=== PATIENT | female | born 1935 | race Caucasian/White ===

== ENCOUNTER 2016-12-18 11:33 | Emergency (ER) | payer MEDICARE ==
[~2016-12-18] VITALS: Ht 162.6 cm; Wt 93.6 kg
[2016-12-18 12:01] VITALS: BP 118/76; PULSE 121; RESP 12; O2SAT 97
[2016-12-18 13:19] LABS: BASOPHILS % (AUTO) 0.4 % (0-3); EOSINOPHILS % (AUTO) 1.3 % (0-5); MONOCYTES % (AUTO) 10.1 % (4-12); Mean Corpuscular Hemoglobin 30.7 pg (27.0-35.0); Mean Corpuscular Volume 92.8 fL (81-100); NEUTROPHILS % (AUTO) 70.4 % (40-74); Platelet Count 298 bil/L (150-400)
--- NOTE | 2016-12-18 13:50 | DRSVH ---
PROCEDURE: X-RAY CHEST, TWO VIEWS ([id number]) INDICATIONS: SHORTNESS OF BREATH TECHNIQUE: 2 views of the chest were acquired. COMPARISON: [facility], CR, XR CHEST 2VW, 12/10/2016, 15:29. FINDINGS: Surgical changes and devices: None. Lungs and pleura: Aeration of the lungs is similar to the previous exam with eventration/elevation of the right diaphragm. No focal consolidation, effusion, or pneumothorax is evident. Right hilar pro minence is unchanged. Mediastinum: Mediastinal contours are normal. Heart size is normal. Bones and chest wall: No suspicious bony abnormalities. Soft tissues appear unremarkable. IMPRESSION: No overt heart failure or pneumonia is evident. Dictated by: Brenden Daly M.D. on 12/18/2016 at 12:47 Approved by: Brenden Daly M.D. on 12/18/2016 at 12:48
--- NOTE | 2016-12-18 14:00 | ED.REPORT ---
HPI-Dyspnea / Wheezing Date of Service Dec 18, 2016 ED Provider: Jc Hassan MD Pt is an 81 y/o female anticoagulated on Warfarin w/ a hx of A-Fib, HTN, presenting to the ED c/o ongoing SOB onset 1 month ago. She has no history of pulmonary disease. She states she was in [place] for 2 weeks sightseeing and was "hit by a bout of CHF" just prior to taking off on her flight and was seen in an ED there and given IV Lasix. At that time she was experiencing dyspnea on exertion, peripheral edema, and confusion. She returned on November 30. She c/o associated mild yellow productive cough, rapid palpitations since she returned. Pt denies fever, chills, CP. Her PCP told her that she should be admitted for uncontrolled A-fib. Nursing Notes Stated Complaint: UNABLE TO BREATHE DEEP/ SENT BY DOCTOR Chief Complaint: Respiratory Complaints Nursing Notes Reviewed: Yes Allergies: Coded Allergies: lisinopril (Verified Allergy, Intermediate, cough, 12/18/16) erythromycin base (Verified Allergy, Unknown, vomit, 12/18/16) General Time Seen by MD: 13:57 Chief Complaint Shortness of breath Hx Obtained From: Patient Arrived By: Walk-in Sudden in Onset?: No Onset Occurred: More than a week ago... 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 Physical Exam Initial Vital Signs Vital Signs (First) Date Time Temp Pulse Resp B/P Pulse Ox O2 Delivery O2 Flow Rate FiO2 12/18/16 12:01 36.6 121 12 118/76 97 Room Air Initial VS: Reviewed, Vital signs abnormal Head / Eyes: Atraumatic, Normocephalic, PERRL ENT: Mucous membranes moist, Conjunctiva normal, No scleral icterus Abdomen / GI: Soft, Non-tender, No guarding, No rebound, No distention Extremities: Vascular intact, Neuro intact, No tenderness Skin: Warm, Dry, No cyanosis Neurologic: Alert, Oriented, Nonfocal Psychiatric: Mood/affect normal, Behavior normal, Normal thought content General/Constitutional: Awake, Alert, No acute distress, Cooperative, Not toxic appearing Neck: Atraumatic, Supple, No meningismus, Full range of motion Respiratory / Chest: Atraumatic, No respiratory distress, No stridor, No chest tenderness, No chest wall deformity, No crepitus Bibasilar rales extending 1/3 up base Cardiovascular: Heart rate NL, Heart sounds NL, No gallop, No murmurs, No rubs , Cap refill not delayed, Peripheral circulation NL Heart Rate / Rhythm: Positive: Irreg irregular rhythm Lower Ext Edema: Positive: Bilateral 2+ Interpretation & Diagnostics Lab Results Interpretation Result Diagram: 12/18/16 1308 12/18/16 1308 Test 12/18/16 13:08 White Blood Count 14.3th/mm3 (3.8-10.1) Red Blood Count 4.89mil/mm3 (3.90-5.20) Hemoglobin 15.0g/dL (12.0-15.6) Hematocrit 45.4% (35.0-46.0) Mean Corpuscular Volume 92.8fL (81-100) Mean Corpuscular Hemoglobin 30.7pg (27.0-35.0) Mean Corpuscular Hemoglobin Concent 33.0% (32.0-37.0) Red Cell Distribution Width 12.8% (12.3-15.4) Platelet Count 298bil/L (150-400) Neutrophils (%) (Auto) 70.4% (40-74) Lymphocytes (%) (Auto) 17.5% (14-46) Monocytes (%) (Auto) 10.1% (4-12) Eosinophils (%) (Auto) 1.3% (0-5) Basophils (%) (Auto) 0.4% (0-3) Prothrombin Time 44.3sec (8.1-12.5) Prothromb Time International Ratio 4.02ratio Sodium Level 142mEq/L (134-144) Potassium Level 3.7mEq/L (3.5-5.2) Chloride Level 101mEq/L (97-108) Carbon Dioxide Level 26mmol/L (18-29) Blood Urea Nitrogen 35mg/dL (8-27) Creatinine 1.59mg/dL (0.57-1.00) Estimat Glomerular Filtration Rate 45mL/min (>59) Glucose Level 128mg/dL (60-99) Calcium Level 10.8mg/dL (8.5-10.1) Total Bilirubin 0.5mg/dL (0.0-1.2) Aspartate Amino Transf (AST/SGOT) 25U/L (0-50) Alanine Aminotransferase (ALT/SGPT) 26U/L (0-32) Alkaline Phosphatase 108U/L (25-165) Troponin T 0.023ug/L (0.0-0.011) Pro-B-Type Natriuretic Peptide 2716pg/mL (0-738) Total Protein 7.3g/dL (6.4-8.4) Albumin 4.3g/dL (3.4-5.0) Hold Chu Top Tube Received (Received) ECG Interpretation ECG Interpretation: Atrial fibrillation with rapid V-rate. Rate 145. Left anterior fascicular block. Low voltage, precordial leads. Time: 13:34 Interpreted by: ED physician X-Ray Chest Interpretation Chest Xray Interpretation: IMPRESSION: No overt heart failure or pneumonia is evident. Dictated by: Brenden Daly M.D. on 12/18/2016 at 12:47 Approved by: Brenden Daly M.D. on 12/18/2016 at 12:48 View: Portable, AP & lat Interpretation / Wet Read by: Interpret - Radiologist Re-Eval/Medical Decision Consultation : Referral / Consult Name: Rashawn La MD Consulted With: Cardiology Call Returned at: 16:55 Outside Food Server: Agrees with eval, Agrees with plan Note: Increase Lasix to 80 mg per day and Metoprolol to 100 mg BID. Her echocardiogram looks good. He recommends follow-up with primary care and cardiology referral if desired. Counseled Regarding: Diagnosis, Lab results, Need for follow-up, When/why to return to ED Discharge & Departure Impression: Primary Impression: Atrial fibrillation with rapid ventricular response Disposition: Home Discharge Condition All VS Reviewed: Yes Condition: Stable Patient Instructions: Atrial Fibrillation (ED) Additional Instructions: I spoke with the hypo dipper today (Dr. Rashawn La). He said your echocardiogram looks good, and probably does not demonstrate significant congestive failure. He believes that the abnormalities seen are all rate related. The Following changes to medications are recommended: 80 mg Lasix daily and 100 mg Metoprolol twice each day. Follow-up with your primary care provider in the coming week to discuss further adjustments and potential cardiology referral. Regarding your warfarin, your INR currently is 4.0 do not take warfarin today and resume dosing Thursday and Thursday and have it ( INR) rechecked on Thursday. Referrals: Anne Mason DO (PCP) Kp Attestation Portions of this note were transcribed by Brandon Esquivel. I, Dr. Hassan personally performed the history, physical exam and medical decision-making; I reviewed and confirmed the accuracy of the information in the transcribed note. Signed by Brandon Esquivel and Kp Holman, 12/18/16 - 1500 copies to: Anne Mason Kirk H MD Dec 18, 2016 14:00 BRANDON ESQUIVEL Dec 18, 2016 14:35 Lindsay Rodriguez Dec 18, 2016 15:01
[2016-12-18 14:02] LABS: TROPONIN T 0.023 ug/L (0.0-0.011)
[2016-12-18 14:53] LABS: INR 4.02 ratio
[2016-12-18 15:00] VITALS: BP 131/87; PULSE 71; RESP 20; O2SAT 98
[2016-12-18 17:32] VITALS: BP 129/88; PULSE 79; O2SAT 100
--- NOTE | 2016-12-18 17:47 | DRSVH ---
[facility] [address] [place] [address] Echocardiogram Report Name: FEDE ANDRADE te: 12/18/2016 Height: 64 in Hospital Exam Location: [facility] Weight: 206 lb Gender: Female BSA: 2.0 m2 : 1935 Age: 81 yrs BP: 131/87 mmHg Reason For Study: Congestive Heart Failure History: AFIB, Hypertension Ordering Physician: HOSPITALIST [facility] Performed By: Ashley Tabor Referring Physician: Tawnya Mason Interpretation Summary The left ventricular cavity is small. Left ventricular systolic function is moderately reduced. LVEF is difficult to assess due to rapid atrial fibrillation but it appears to be in the range of 40 +/- 5%. The right ventricle is normal size. Right ventricular systolic function is mild to moderately reduced. The right ventricular systolic pressure is estimated at 47 mmHg assuming a right atrial pressure of 15 mm Hg. Both atria are normal in size. There is mild mitral regurgitation. There is no other significant valvular heart disease. The aortic root is normal size. The IVC is dilated (diameter is greater than 2.1 cm) and it collapses less than 50% with a sniff. This suggests a high right atrial pressure of 15 mm Hg. Procedure: A two-dimensional transthoracic echocardiogram with color flow and Doppler was performed. The study quality was technically adequate. There is no prior echocardiogram noted for this patient. The patient was in atrial fibrillation with heart rates between 93-155 bpm during the exam. Left Ventricle: The left ventricular cavity is small. There is mild concentric left ventricular hypertrophy. Left ventricular systolic function is moderately reduced. Left ventricular ejection fraction is estimated to be 40 +/- 5%. There are no obvious focal wall motion abnormalities noted but poor endocardial definition reduces the sensitivity for the detection of such. Diastolic function could not be accurately assessed due to atrial fibrillation. Right Ventricle: The right ventricle is normal size. Right ventricular systolic function is mild to moderately reduced. Atria: Both atria are normal in size. There is no Doppler evidence for an interatrial shunt. Mitral Valve: There is mild mitral annular calcification. There is mild mitral regurgitation. Aortic Valve: The aortic valve is trileaflet. There is discrete nodular thickening of the non- coronary cusp. There is no hemodynamically significant valvular aortic stenosis. There is trace aortic regurgitation. Tricuspid Valve: The tricuspid valve is normal in structure and function. There is trace tricuspid regurgitation. The right ventricular systolic pressure is estimated at 47 mmHg assuming a right atrial pressure of 15 mm Hg. Pulmonic Valve: The pulmonic valve leaflets are thin and pliable; valve motion is normal. There is mild pulmonic regurgitation. There is no other significant valvular heart disease. Great Vessels: The aortic root is normal size. The ascending aorta is normal in size. The aortic arch could not be visualized. The IVC is dilated (diameter is greater than 2.1 cm) and it collapses less than 50% with a sniff. This suggests a high right atrial pressure of 15 mm Hg. Pericardium/ Pleura There is no pericardial effusion. MMode/2D Measurements & Calculations LVIDd: 3.1 cm RA long axis LVOT diam: 1.7 cm EPSS: 0.49 cm LA A2 area: 18.3 cm AoV Opening IVSd: 1.1 cm LA A4 area: 23.1 cm RA area LVPWd: 1.1 cm LA length (vol): 6.0 cm Ao root diam LA vol: 60.1 ml : 18.7 cm RA vol: 56.7 ml asc Aorta Diam LA vol index: 30.3 ml/m RA IVC diam: 2.3 cm : 28.6 mm2 EDV(MOD-sp2) LV valdez. diameter/BSA RVD1 (basal) TAPSE: 1.3 cm (cm/m^2): 1.6 ESV(MOD-sp2) EF(MOD-sp2) Doppler Measurements & Calculations Ao V2 max MV E max clyde Med Peak E' Clyde TR max clyde : 96.3 cm/sec : 103.6 cm/sec : 282.8 cm/sec Ao max PG MR ERO: 0.05 cm2 E/E' med: 19.9 TR max PG : 3.7 mmHg Lat Peak E' Clyde : 32.0 mmHg Ao mean PG PA V2 max E/E' lat: 12.6 : 56.6 cm/sec LVOT Max Clyed E/e' average PA mean PG : 58.1 cm/sec : 0.83 mmHg AYSE(I,D): 1.1 cm PA Accel Time sev ratio : 0.08 sec MV dec time Ao V2 mean: 68.9 cm/secLV V1 max PG MR flow rate : 0.13 sec Ao V2 VTI: 16.4 cm LV V1 VTI: 8.5 cm : 21.5 cm3/sec AYSE(V,D): 1.3 cm2 MR PISA radius PA V2 mean AYSE indexed to BSA : 43.1 cm/sec (cm^2/m^2): 0.57 Reading Physician:SHAILESH
== END 2016-12-18 17:32 | disposition home or self-care (01) ==
LOC: SED 11:33
DX: I11.0 Hypertensive heart disease with heart failure (principal); I48.91 Unspecified atrial fibrillation; Z88.1 Allergy status to other antibiotic agents; Z88.8 Allergy status to other drugs, medicaments and biological substances; Z79.01 Long term (current) use of anticoagulants
CPT/HCPCS: 36415; 71020; 80053; 83880; 84484; 85025; 85610; 93005; 99285; C8929

== ENCOUNTER 2017-04-25 07:24 | Inpatient (IN) | payer MEDICARE ==
[~2017-04-25] VITALS: Ht 162.6 cm; Wt 94.2 kg
[2017-04-25] VITALS (17 sets, daily range): BP systolic 100–127; BP diastolic 60–102; PULSE 100–150; RESP 18–26; O2SAT 92–100
--- NOTE | 2017-04-25 07:37 | ED.REPORT ---
HPI-General Illness Date of Service Apr 25, 2017 ED Provider: Dr. Chappell Pt is an 81 year old female with a hx of HTN and Afib on Warfarin presenting to the ED via EMS complaining of palpitations onset at 0400 this morning when she woke up. They have persisted throughout the morning without any relief. She denies noting any inciting factors, nor alleviating or exacerbating factors. Associated symptoms include shakiness, SOB (the last 6 months), and LE swelling which is chronic. Denies any chest pain or pressure, abdominal pain, nausea, vomiting, diarrhea, wheezing, fever, chills, numbness, weakness, vision changes , or speech changes. She denies any previous episodes like this, but she states that she received electrical cardioversion for an episode of afib 20 years ago. Pt had a stress test and pulmonary function test 5 days ago. Denies hx of DVT or PE. No other complaints at this time. Nursing Notes Stated Complaint: Palpitations Chief Complaint: palpitations Nursing Notes Reviewed: Yes Allergies: Coded Allergies: lisinopril (Verified Allergy, Intermediate, cough, 12/18/16) erythromycin base (Verified Allergy, Unknown, vomit, 12/18/16) Scheduled Losartan Potassium (Losartan Potassium) 25 Mg Tablet 25 MG PO Q2DAY Metoprolol Succinate ER (Toprol XL) 50 Mg Tablet 150 MG PO AM Metoprolol Succinate ER (Metoprolol Succinate ER) 50 Mg Tab.er.24h 100 MG PO HS Torsemide (Torsemide) 20 Mg Tablet 20 MG PO DAILY Warfarin Sodium (Jantoven) 3 Mg Tablet 1.5 MG PO every day except Carin Warfarin Sodium (Jantoven) 3 Mg Tablet 3 MG PO Thur Scheduled PRN Acetaminophen/Diphenhydramine (Tylenol Pm Ex-Strength Caplet) 500 Mg-25 Mg Tablet 2 EACH PO PRN For Pain General Time Seen by MD: 07:37 Chief Complaint Other (Palpitations) Hx Obtained From: Patient, EMS Arrived By: Ambulance Sudden in Onset?: Yes Symptom Duration: 16 - 30 minutes Severity: Current: No pain currently Severity: Maximum: No pain Recent Healthcare: No recent doctor visit, No recent hospitalization Similar Sx Previous: No Past Medical History Past Medical History Atrial fibrillation - on Warfarin Single episode of CHF in late November 2016 Hypertension Past Surgical History None reported Smoking History Unknown if Ever Smoker Social History 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 [employer] Ambulatory Status Independent Review of Systems Full Review of Systems Constitutional: Denies: Chills, Fever Eyes: Denies: Blurred bilateral, Visual loss bilateral Ears / Nose / Throat: Denies: Sore throat Respiratory: Reports: Shortness of breath, Denies: Wheezing Cardiovascular: Reports: Palpitations, Denies: Chest pain GI: Denies: Abdominal pain, Diarrhea, Nausea, Vomiting Female: Denies: Dysuria Musculoskeletal: Reports: Extremity swelling Hematologic: Denies Bleeding Endocrine: Denies: Polydipsia Skin: Denies Unexplained bruises Allergy / Immune: Denies: Itching Neurologic: Reports: Shaking, Denies: Focal weakness, Numbness, Slurred speech, Unable to speak, Vision change Psychiatric: Denies: Change mental status Complete sys rev & neg: except as marked. Physical Exam Nursing note and vitals reviewed. Constitutional: Well-developed, well-nourished elderly female sitting up in a chair. Not diaphoretic. Head: Normocephalic and atraumatic. Mouth/Throat: Oropharynx is clear and moist. No oropharyngeal exudate. Eyes: EOM are normal. Pupils are equal, round, and reactive to light. Neck: Supple, no tracheal deviation. Cardiovascular: Tachycardic, irregular rhythm. Equal and intact distal pulses throughout. 2+ pitting edema to bilateral lower extremities. Pulmonary/Chest: Effort normal. No respiratory distress. Crackles to bilateral bases. Abdominal: Soft. No distension. There is no tenderness, rebound, or guarding. Bowel sounds present. Musculoskeletal: Range of motion grossly intact, moving all extremities. Neurological: AOx3. Grossly nonfocal exam. Strength and sensation intact and equal to bilateral upper and lower extremities. Skin: Warm and dry, no rashes or pallor appreciated. Venous stasis changes to bilateral lower extremities. Psychiatric: Appropriate mood and affect. Behavior appears normal. Vital Signs Vital Signs Date Time Temp Pulse Resp B/P Pulse Ox O2 Delivery O2 Flow Rate FiO2 04/25/17 13:06 100 22 103/74 99 Room Air 04/25/17 11:41 130 22 117/80 95 Room Air 04/25/17 11:09 132 24 100/68 99 Room Air 04/25/17 10:47 142 23 101/66 04/25/17 10:09 150 18 114/62 97 04/25/17 09:54 143 20 111/67 99 Room Air 04/25/17 09:00 135 104/60 04/25/17 08:12 140 22 114/71 98 Room Air 04/25/17 07:46 36.5 136 19 127/102 100 Room Air Initial VS: Reviewed, Vital signs abnormal Interpretation & Diagnostics Lab Results Interpretation Result Diagram: 04/25/17 0745 04/25/17 0745 Test 04/25/17 07:45 White Blood Count 13.0th/mm3 (3.8-10.1) Red Blood Count 5.30mil/mm3 (3.90-5.20) Hemoglobin 16.4g/dL (12.0-15.6) Hematocrit 49.6% (35.0-46.0) Mean Corpuscular Volume 93.6fL (81-100) Mean Corpuscular Hemoglobin 30.9pg (27.0-35.0) Mean Corpuscular Hemoglobin Concent 33.1% (32.0-37.0) Red Cell Distribution Width 16.2% (12.3-15.4) Platelet Count 253bil/L (150-400) Neutrophils (%) (Auto) 65.9% (40-74) Lymphocytes (%) (Auto) 20.1% (14-46) Monocytes (%) (Auto) 11.3% (4-12) Eosinophils (%) (Auto) 2.2% (0-5) Basophils (%) (Auto) 0.3% (0-3) Prothrombin Time 39.3sec (8.1-12.5) Prothromb Time International Ratio 3.58ratio Sodium Level 139mEq/L (134-144) Potassium Level 3.8mEq/L (3.5-5.2) Chloride Level 92mEq/L (97-108) Carbon Dioxide Level 25mmol/L (18-29) Blood Urea Nitrogen 49mg/dL (8-27) Creatinine 1.99mg/dL (0.57-1.00) Estimat Glomerular Filtration Rate 34mL/min (>59) Glucose Level 141mg/dL (60-99) Calcium Level 10.5mg/dL (8.5-10.1) Magnesium Level 2.7mg/dL (1.6-2.6) Total Bilirubin 1.2mg/dL (0.0-1.2) Aspartate Amino Transf (AST/SGOT) 37U/L (0-50) Alanine Aminotransferase (ALT/SGPT) 42U/L (0-32) Alkaline Phosphatase 162U/L (25-165) Troponin T 0.028ug/L (0.0-0.011) Pro-B-Type Natriuretic Peptide 8005pg/mL (0-738) Total Protein 7.2g/dL (6.4-8.4) Albumin 4.2g/dL (3.4-5.0) ECG Interpretation ECG Interpretation: Afib with RVR rate of 151. IT artifact in v6. Time: 07:42 Interpreted by: ED physician X-Ray Chest Interpretation Chest Xray Interpretation: IMPRESSION: Reduced inspiratory volume, no acute disease, no pneumonia found. Chronic mild elevation of the right diaphragm. Dictated by: Bj Lombardo M.D. on 04/25/2017 at 8:14 View: Portable, 1 view Interpretation / Wet Read by: Interpret - Radiologist Re-Eval/Medical Decision Med Decision/Clinical Course In summary, 81-year-old female with a history of atrial fibrillation on warfarin presenting to the ED for evaluation of palpitations noticed first thing this morning. Differential is broad and includes SVT, sinus tachycardia, ACS, PE, atrial fibrillation with RVR, etc. EKG demonstrates A. fib with RVR, however there is significant artifact in V6. I cannot appreciate any acute ischemic changes at this time. Chest x-ray with no signs of acute disease. Troponin 0.028; she has had elevated troponins in the past and her creatinine is currently 1.99 - unclear if there is an element of demand ischemia present. Other labs notable for a calcium of 7.5, magnesium 2.7, white blood cell count of 13, hemoglobin of 16.4, BNP 8005, INR 3.58. Patient given metoprolol 5 mg IV 3 with no significant improvement. Subsequently given a dose of diltiazem with improvement down to a heart rate of approximately 100, however this was brief and she returned to a rate in the 130s to 140s shortly thereafter. She was started on a diltiazem drip. At this time, we will continue this, however may need to choose an additional/different agent given possible CHF exacerbation and as her blood pressure will allow. I discussed this with the admitting team; appreciate their assistance. Plan admission for further management and evaluation. Patient and family agreeable to the plan as stated, no further questions. Time of Eval: 12:13 Patient Status: Condition improved Re-Evaluation/Progress Note: Pt's symptoms are now resolved, and lasted for about 20 minutes. Discussed plan for likely admission. Advised of lab and x ray results. Consultation : Referral / Consult Name: Harpreet Richardson MD Consulted With: Hospitalist Call Returned at: 14:15 Research Professor Of Biostatistics: Will see patient, Agrees with plan, Accepts admit Counseled Regarding: Diagnosis, Lab results, Need for admission Discharge & Departure Primary Impression: Atrial fibrillation with rapid ventricular response Additional Impressions: NSTEMI (non-ST elevated myocardial infarction) CHF exacerbation Congestive heart failure type: unspecified congestive heart failure type Qualified Code: I50.9 - Heart failure, unspecified Disposition: ADMITTED TO HOSPITAL Discharge Condition All VS Reviewed: Yes Condition: Stable Referrals: Anne Mason DO (PCP) Richard Ingram MD Crit Care Except Billable Proc Time Spent: 30-74 minutes Services Performed: Patient management by me, Time spent at bedside, Reviewing test results, Reviewing imaging, Discussing patient care, Documentation in record, Time with fam/surrogate Critical Care Notes: Please see MDM. Marvinibrenata Attestation Portions of this note were transcribed by Sonali Duran. I, Dr. Chappell personally performed the history, physical exam and medical decision-making; I reviewed and confirmed the accuracy of the information in the transcribed note. Signed by: Kp Aviles, 04/25/2017. copies to: Richard Ingram MD; Anne Mason William B MD Apr 25, 2017 07:37 SONALI DURAN Apr 25, 2017 10:12
[2017-04-25 08:12] LABS: BASOPHILS % (AUTO) 0.3 % (0-3); EOSINOPHILS % (AUTO) 2.2 % (0-5); MONOCYTES % (AUTO) 11.3 % (4-12); Mean Corpuscular Hemoglobin 30.9 pg (27.0-35.0); Mean Corpuscular Volume 93.6 fL (81-100); NEUTROPHILS % (AUTO) 65.9 % (40-74); Platelet Count 253 bil/L (150-400); TROPONIN T 0.028 ug/L (0.0-0.011)
--- NOTE | 2017-04-25 08:16 | DRSVH ---
PROCEDURE: X-RAY CHEST ONE VIEW, PORTABLE ([id number]) INDICATIONS: sob TECHNIQUE: One view of the chest was acquired. COMPARISON: [facility], CR, XR CHEST 2VW, 12/18/2016, 13:12. [facility], CR , XR CHEST 2VW, 12/10/2016, 15:29. FINDINGS: Surgical changes and devices: None. Lungs and pleura: No pleural effusions or pneumothorax. Lungs are clear. Mediastinum: Mediastinal contours appear normal. Heart size is normal. Bones and chest wall: No suspicious bony lesions. Overlying soft tissues appear unremarkable. IMPRESSION: Reduced inspiratory volume, no acute disease, no pneumonia found. Chronic mild elevation of the right diaphragm. Dictated by: Bj Lombardo M.D. on 04/25/2017 at 8:14 Approved by: Bj Lombardo M.D. on 04/25/2017 at 8:14
[2017-04-25 08:23] LABS: Magnesium 2.7 mg/dL (1.6-2.6)
[2017-04-25] MEDS: MeTOProlol 1 mg/mL 5 mL Inj IVPUSH PRN ×3 (10:08→11:18)
[2017-04-25] MEDS ORDERED: Potassium Chloride 20 mEq SR Tablet PO ONE (10:25)
[2017-04-25 12:28] LABS: INR 3.58 ratio
[2017-04-25] MEDS ORDERED: Diltiazem 5 mg/mL 5 mL Inj IVPUSH ONE (12:30)
[2017-04-25] MEDS: Diltiazem HCl 125 MG in 0.9% Sodium Chloride 100 ML, Pharmacy To Mix 1 EA IV SCH ×2 (13:07→23:34)
[2017-04-25] MEDS ORDERED: LOSA25TA21 PO (13:15)
[2017-04-25] MEDS ORDERED: METO50TA7 PO (13:15)
[2017-04-25] MEDS ORDERED: METO-272 PO (13:15)
[2017-04-25] MEDS ORDERED: WARF3TAB8 PO ×2 (13:15)
[2017-04-25] MEDS ORDERED: TORS20TA3 PO (13:15)
[2017-04-25] MEDS ORDERED: ACET-2605 PO (13:16)
[2017-04-25] MEDS ORDERED: Ondansetron 2 mg/mL 2 mL Inj IVPUSH PRN (15:05)
[2017-04-25] MEDS ORDERED: Polyethylene Glycol (PEG) 17 Gm Powder PO PRN (15:05)
[2017-04-25] MEDS ORDERED: Alum-Mag Hydrox-Simeth 30 mL Suspension PO PRN (15:05)
--- NOTE | 2017-04-25 15:44 | PCM.CONPHA ---
Subjective Date of Service: Apr 25, 2017 Reason for Pharmacy Consult: Anticoagulation Management Objective Vital Signs Date Time Temp Pulse Resp B/P Pulse Ox O2 Delivery O2 Flow Rate FiO2 04/25/17 15:24 137 20 103/69 95 Room Air 04/25/17 14:51 123 24 103/76 98 Room Air 04/25/17 14:25 140 22 100/75 97 Room Air 04/25/17 13:06 100 22 103/74 99 Room Air 04/25/17 11:41 130 22 117/80 95 Room Air 04/25/17 11:09 132 24 100/68 99 Room Air 04/25/17 10:47 142 23 101/66 04/25/17 10:09 150 18 114/62 97 04/25/17 09:54 143 20 111/67 99 Room Air 04/25/17 09:00 135 104/60 04/25/17 08:12 140 22 114/71 98 Room Air 04/25/17 07:46 36.5 136 19 127/102 100 Room Air Weight (Kilograms): 93.18 Height (Feet): 5 Height (Inches): 4.00 Test 04/25/17 07:45 White Blood Count 13.0th/mm3 (3.8-10.1) Red Blood Count 5.30mil/mm3 (3.90-5.20) Hemoglobin 16.4g/dL (12.0-15.6) Hematocrit 49.6% (35.0-46.0) Mean Corpuscular Volume 93.6fL (81-100) Mean Corpuscular Hemoglobin 30.9pg (27.0-35.0) Mean Corpuscular Hemoglobin Concent 33.1% (32.0-37.0) Red Cell Distribution Width 16.2% (12.3-15.4) Platelet Count 253bil/L (150-400) Neutrophils (%) (Auto) 65.9% (40-74) Lymphocytes (%) (Auto) 20.1% (14-46) Monocytes (%) (Auto) 11.3% (4-12) Eosinophils (%) (Auto) 2.2% (0-5) Basophils (%) (Auto) 0.3% (0-3) Prothrombin Time 39.3sec (8.1-12.5) Prothromb Time International Ratio 3.58ratio Sodium Level 139mEq/L (134-144) Potassium Level 3.8mEq/L (3.5-5.2) Chloride Level 92mEq/L (97-108) Carbon Dioxide Level 25mmol/L (18-29) Blood Urea Nitrogen 49mg/dL (8-27) Creatinine 1.99mg/dL (0.57-1.00) Estimat Glomerular Filtration Rate 34mL/min (>59) Glucose Level 141mg/dL (60-99) Calcium Level 10.5mg/dL (8.5-10.1) Magnesium Level 2.7mg/dL (1.6-2.6) Total Bilirubin 1.2mg/dL (0.0-1.2) Aspartate Amino Transf (AST/SGOT) 37U/L (0-50) Alanine Aminotransferase (ALT/SGPT) 42U/L (0-32) Alkaline Phosphatase 162U/L (25-165) Troponin T 0.028ug/L (0.0-0.011) Pro-B-Type Natriuretic Peptide 8005pg/mL (0-738) Total Protein 7.2g/dL (6.4-8.4) Albumin 4.2g/dL (3.4-5.0) Assessment/Plan Assessment/Plan WARFARIN MANAGEMENT A\ 81 YO F ADMITTED FOR AFIB W/RVR AND CHF HOME DOSE WARFARIN 3mg TURSDAY AND 1.5mg THE REST OF THE WEEK CURRENT INR= 3.58 HCT=49.3 SEY=855 GOAL INR=2-3 NO BLEEDING REPORTED BY RN AND PT HAS NOT TAKEN HER HOME DOSE OF WARFARIN YET TODAY. USUALLY TAKES WARFARIN IN THE EVENING. TORSEMIDE CAN INCREASE INR BY DECREASING WARFARIN CLEARANCE. P\ WILL HOLD WARFARIN TONIGHT AND CHECK ANOTHER INR WITH AM LABS. Jake Shipley [facility] Apr 25, 2017 15:44
[2017-04-25] MEDS ORDERED: MeTOProlol 1 mg/mL 5 mL Inj IVPUSH PRN ×2 (15:55→18:10)
--- NOTE | 2017-04-25 17:01 | NUR ---
Admit/dilt gtt Pt arrived to floor just before 1600 in stable condition. Able to ambulate from stretcher to bed SBA with no chest pain or dizziness. Pt states she has been SOB at baseline for some time at rest and with exertion. Pt on dilt gtt at 10mg/hr, BP 100s/60s with rate afib in the 115-130s. Pt on MP-30 for monitoring. A&O x3, PIV patent and intact. Oriented pt to room, call light. Frequent rounding continues. MD at bedside.
--- NOTE | 2017-04-25 18:31 | PCM.HPMED ---
Subjective Date of Service Apr 25, 2017 Primary Provider: Admitting Physician: Harpreet Richardson MD Primary Care Physician: Anne Mason DO Attending Physician: Harpreet Richardson MD Chief Complaint: Shortness of Breath History of Present Illness: Patient is an 81 y/o female with a Afib-on Warfarin, hypertension, and had an episode of CHF in November 2016 who presented with increasing shortness of breath with palpitations. Admitted with Afib with RVR. Patient woke up from sleep at 0400 this morning with palpitations. She states she waited to see if the feeling would go away, but when it didn't she called the EMS. She has not tried any medications to relieve the symptoms, and nothing aggravates the symptoms. Shortness of breath has been going on for the last six months, but has been gradually getting worse the last week. Patient denies CP, ABD pain, N/ V/D, headache, urinary symptoms, constipation, fevers/chills, or loss of appetite. Patient doesn't feel that her legs have been getting more swollen, but she may have felt like her pants have been getting tighter this past week. Patient takes Torsemide 20mg PO daily, Metoprolol Succinate 150mg PO in the AM and 100mg PO in the evenings, Warfarin 1.5mg PO daily except , and Warfarin 3mg PO . She states that she has not missed any doses of medications. Patient was given 5mg IV Lopressor x3 in the ED without relief, Diltiazem 25mg IV without relief, and eventually placed on a Diltiazem drip at a rate of 5mg/ hr. Patient's HR in the ED was 132 with Afib. BP 102/78, with an O2 of 97% on Room Air. Review of Systems: Negative unless noted above. Allergies Coded Allergies: lisinopril (Verified Allergy, Intermediate, cough, 12/18/16) erythromycin base (Verified Allergy, Unknown, vomit, 12/18/16) Home Medications Losartan Potassium (Losartan Potassium) 25 Mg Tablet 25 MG PO Q2DAY Metoprolol Succinate ER (Toprol XL) 50 Mg Tablet 150 MG PO AM Metoprolol Succinate ER (Metoprolol Succinate ER) 50 Mg Tab.er.24h 100 MG PO HS Torsemide (Torsemide) 20 Mg Tablet 20 MG PO DAILY Warfarin Sodium (Jantoven) 3 Mg Tablet 1.5 MG PO every day except Carin Warfarin Sodium (Jantoven) 3 Mg Tablet 3 MG PO Thur PMH Hypertension Afib with RVR CHF Surgical History None reported Family History None reported Social History Hx Alcohol Use: No Hx Substance Use: No Hx Tobacco Use: Yes Smoking Status: Former Smoker Living Arrangement: with Family Exam Vital Signs Vital Sign - Last Date Time Temp Pulse Resp B/P Pulse Ox O2 Delivery O2 Flow Rate FiO2 04/25/17 16:08 36.5 132 20 102/78 97 Room Air Exam Patient is a pleasant 81 y/o Female sitting up in chair. Alert, awake and oriented x4. In no acute distress. Head: Normocephalic and atraumatic Eyes: pupils equal round and reactive to light. EOMI. No scleral icterus. Heart: tachycardic, irregularly irregular rhythm. No rubs or gallops. 3+ pitting, painful edema on bilateral lower extremities. Lungs: clear to auscultation. no wheeze, rales, or rhonchi. ABD: soft, non-tender, bowel sounds present throughout. Musculoskeletal: moves all four extremities appropriately, walked from wheelchair to bed without assistance. 5/5 strength in bilateral UE and 5/5 strength in bilateral LE. Skin: warm, dry, nonblanching chronic erythema skin on bilateral lower extremities with associated skin breakdown. No overt signs of infection. Neuro: CN II-XII intact. No focal deficits. Psych: appropriate mood and affect. Lab and Diagnostics Labs Item Value Date Time Red Blood Count 5.30 mil/mm3 H 04/25/17 0745 Mean Corpuscular Volume 93.6 fL 04/25/17 0745 Mean Corpuscular Hemoglobin 30.9 pg 04/25/17 0745 Mean Corpuscular Hemoglobin Concent 33.1 % 04/25/17 07 Red Cell Distribution Width 16.2 % H 04/25/17 0745 Neutrophils (%) (Auto) 65.9 % 04/25/17 0745 Lymphocytes (%) (Auto) 20.1 % 04/25/17 07 Monocytes (%) (Auto) 11.3 % 04/25/17 07 Eosinophils (%) (Auto) 2.2 % 04/25/17 07 Basophils (%) (Auto) 0.3 % 04/25/17 07 Estimat Glomerular Filtration Rate 34 mL/min 04/25/17 07 Calcium Level 10.5 mg/dL H 04/25/17 07 Magnesium Level 2.7 mg/dL H 04/25/17 07 Total Bilirubin 1.2 mg/dL 04/25/17 07 Aspartate Amino Transf (AST/SGOT) 37 U/L 04/25/17 07 Alanine Aminotransferase (ALT/SGPT) 42 U/L H 04/25/17 0745 Alkaline Phosphatase 162 U/L 04/25/17 07 Troponin T 0.028 ug/L H 04/25/17 07 Pro-B-Type Natriuretic Peptide 8005 pg/mL H 04/25/17 07 Procalcitonin 0.13 ng/mL H 04/25/17 07 Total Protein 7.2 g/dL 04/25/17 07 Albumin 4.2 g/dL 04/25/17 07 Result Diagram: 04/25/17 0704/25/17 07 Microbiology Blood culture pending. X-Rays, CTs and MRIs PROCEDURE: X-RAY CHEST, TWO VIEWS IMPRESSION: Scattered mild bilateral interstitial opacities possibly chronic scarring, although in the absence of comparison studies it would be difficult to exclude early pulmonary edema therefore please correlate clinically. Elsewhere, no acute abnormality Elevation of the right hemidiaphragm. Dictated by: Sathish Elkins M.D. on 12/10/2016 at 16:52 PROCEDURE: X-RAY CHEST, TWO VIEWS IMPRESSION: No overt heart failure or pneumonia is evident. Dictated by: Brenden Daly M.D. on 12/18/2016 at 12:47 PROCEDURE: X-RAY CHEST ONE VIEW, PORTABLE IMPRESSION: Reduced inspiratory volume, no acute disease, no pneumonia found. Chronic mild elevation of the right diaphragm Dictated by: Bj Lombardo M.D. on 04/25/2017 at 8:14 Assessment & Plan Patient is an 81 y/o female with a Afib-on Warfarin, hypertension, and had an episode of CHF in November 2016 who presented with increasing shortness of breath with palpitations. Admitted with Afib with RVR. Acute exacerbation of chronic Atrial Fibrillation, POA, Active. - Patient in Afib with RVR. She has been compliant on medications, but has been feeling increasingly short of breath the last few months. Recent CHF in November 2016, and increasing SOB indicates this is likely secondary to fluid overload or CHF. -Continue Diltiazem drip @10mg/hr, titrate up if needed. -Hold home doses of Metoprolol when on Diltiazem drip -Continue home dose of Losartan -Increase home dose of Torsemide to 40mg PO daily - Cardiology consulted, spoke with Dr. Maciel who will see patient tomorrow. -AM CBC/CMP Acute Shortness of Breath, POA, Active. -Patient has been increasingly short of breath over the last few months with a reported "CHF visit in November of 2016". No formal diagnosis. -pro-BNP was 8005 in the ED with a previous BNP of 2716 on 12/18/16. - Diuresis with Torsemide as above. - Echo planned for tomorrow morning -Cardiology consulted. -Strict I&Os, with daily weights. -low salt diet. Acute Kidney Injury, POA, Active. - SCr on 12/18/16 was 1.59. SCr on admission was 1.99, uncertain of the cause of this at this time. -BUN/Cr ratio 24.6 -Avoid Nephrotoxic agents. -Renal function panel Elevated Troponin of unknown significance, POA, Active - Patient had a troponin of 0.028 in the ED @0700 without any trends. Patient had no complaints of chest pain on admission. -Repeat, trend if still elevated. Monitoring. H/o HTN. Stable -Hold Beta blockers while on Diltiazem - Continue Losartan home dose. PPI: Famotidine Pain Control: Acetaminophen Constipation ppx: Senna, Miralax Nausea: Zofran Patient DNR/DNI Patient Status: Inpatient, anticipated length of stay >2 midnights due to severity of condition and complexity of treatment plan. Pain Evaluation: Adequate Pain Control GI Prophylaxis: Proton Pump Inhibitor VTE Prophylaxis Indicated: Meets Criteria for Anticoag Therapy VTE Prophylaxis: Theraputic Anticoag with Warfarin Resuscitation Status: DNR/DNI:Do Not Resuscitate/Intubate Attending Statement The patient was seen and examined together with Dr. Borja on 04/25/2017 and I agree with the history, exam and plan as outlined in the note above. . Alejandro Borja DO Apr 25, 2017 18:31 Harpreet Richardson MD Apr 26, 2017 07:39
[2017-04-25] MEDS: MeTOProlol XL 50 mg ER24 Tablet PO SCH (20:25)
[2017-04-25] MEDS ORDERED: MeTOProlol XL 50 mg ER24 Tablet PO SCH ×2 (21:00)
[2017-04-25 23:11] LABS: APPEARANCE,URINE HAZY (CLEAR,HAZY); COLOR,URINE YELLOW (YELLOW); OCCULT BLOOD,URINE NEGATIVE (NEGATIVE); PH,URINE 5.5 (5.0-8.0); UROBILINOGEN,URINE NORMAL (NORMAL)
[2017-04-26] VITALS (17 sets, daily range): BP systolic 96–126; BP diastolic 57–97; PULSE 92–155; RESP 21–36; O2SAT 94–98
[2017-04-26 03:21] LABS: BASOPHILS % (AUTO) 0.3 % (0-3); EOSINOPHILS % (AUTO) 2.3 % (0-5); MONOCYTES % (AUTO) 10.9 % (4-12); Mean Corpuscular Hemoglobin 30.9 pg (27.0-35.0); Mean Corpuscular Volume 94.2 fL (81-100); NEUTROPHILS % (AUTO) 71.1 % (40-74); Platelet Count 217 bil/L (150-400)
[2017-04-26 03:39] LABS: INR 3.34 ratio
[2017-04-26 03:44] LABS: Phosphorus 3.7 mg/dL (2.5-4.9)
--- NOTE | 2017-04-26 05:47 | NUR ---
Dilt gtt/BP A-fib 110's-160's, dilt drip increased to 15ml/hr at 2150. BP began trending down to 80's-mid 90's systolic, requiring titration down to 5 mg/hr, at which point BP stabilized to 100's/50's around 0500. HR remains 110's-140's. 650 mL clear yellow urine output tonight. Pt desatted to 87% on room air while sleeping, 2L NC applied, maintained 97% rest of shift. Plan for echo tomorrow.
[2017-04-26] MEDS ORDERED: Esmolol 10,000 mCg/mL 10 mL Inj IVPUSH ONE (08:20)
[2017-04-26] MEDS ORDERED: Digoxin 0.25 mg/mL 2 mL Inj IV ONE ×2 (08:20→14:20)
[2017-04-26] MEDS ORDERED: MeTOProlol XL 50 mg ER24 Tablet PO SCH ×3 (08:30)
--- NOTE | 2017-04-26 09:44 | CONS ---
[address] [address] CONSULTATION REPORT PATIENT: FEDE ANDRADE : 1935 MR#: [id number] ADMIT: 04/25/2017 JOB ID: [id number] DATE OF SERVICE: 04/26/2017 IDENTIFICATION: Dr. Harpreet Richardson has asked that I consult on this 81-year-old female with uncontrolled atrial fibrillation. HISTORY OF PRESENT ILLNESS: The patient reports a greater than 20 year history of chronic atrial fibrillation for which she has been on warfarin and apparently metoprolol 50 mg daily, which she believes provided fairly good heart rate control, although was completely unaware of any sense of her heart rate, but had no significant cardiac issues. Over the last six months, however, she has noted some increased edema and developed dyspnea while vacationing in [place] and was diagnosed with CHF. Upon her return she presented to the emergency department in December and was found to have a heart rate of 121 BPM. An echocardiogram at that time suggested an ejection fraction around 40% with normal right ventricular size and function, but PAP of around 47 mmHg and a CVP of around 15 mmHg. Her BUN was 35 and a creatinine of 1.6 which apparently has been chronically elevated. She was treated with IV Lasix and her metoprolol was increased to 100 mg b.i.d., and she was discharged home. It is not clear that her heart rates were ever adequately controlled and when she saw Dr. Ingram in consultation on March 27, 2017 her heart rate was 130 on metoprolol 150 mg daily which he increased to 250 mg daily in divided doses. A myocardial perfusion imaging study was obtained, which suggested an ejection fraction of around 53% with fairly small left ventricular volumes. I have personally reviewed these images and she may have a mild partially reversible anteroapical and lateral defect, although the small left ventricular volumes in the absence of any proning reduce the specificity of this. A ZIO patch was also ordered, but has not yet been obtained. She states that she has had generalized weakness and progressive dyspnea without significant change with recent increase in her metoprolol and diuretics. Yet, she denies any orthopnea and has had no chest discomfort or other anginal symptom a whose symptoms. She has had no sense of any lightheadedness, although complains of some generalized leg weakness. She has had no sense of any palpitations until yesterday morning when she awoke with a sense of a rapid pounding palpitation, again without any lightheadedness, but with increased dyspnea. On the basis of this, she presented to the emergency department where her heart rates were noted to be in the 130 to 150 range. Her BUN was now 49 with a creatinine of 2.0 with a potassium 3.8, and a proBNP of 8000. Her troponin was borderline elevated at 0.03. She was treated with IV metoprolol without significant effect on her heart rate and therefore was given an IV bolus of diltiazem with transit reduction of her heart rates down to 100, but with prompted resumption of heart rates in the 130-140 range. IV diltiazem was subsequently started, although has been fairly ineffective in controlling her heart rates with blood pressures generally in the 100-120 range. This morning, she continues to note some dyspnea, which she feels is unchanged, but continues to deny any orthopnea. She continues to deny any sense of any chest discomfort. CARDIAC RISK FACTORS: Notable for borderline diabetes. She was diagnosed with hyperlipidemia and was on statin therapy, but this was stopped for unclear reasons. No history of hypertension. She has smoked two packs per day for around 20 years, but stopped around 20 years ago. FAMILY HISTORY: Unremarkable for any premature coronary artery disease with the exception of her maternal siblings who had fairly extensive early heart disease of some type. PAST MEDICAL HISTORY: Notable for chronic renal insufficiency of uncertain cause. She describes a peripheral neuropathy and chronic pedal edema for which she uses a walker. She was diagnosed with sleep apnea around 20 years ago, but was intolerant to CPAP treatment and thus it has remained untreated. HOME MEDICATIONS: 1. Losartan 25 mg every other day. 2. Metoprolol 150 mg in the morning, 100 mg in the evening. 3. Torsemide 20 mg daily. 4. Warfarin. FAMILY HISTORY: As above. 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 He admits to one glass of wine per week on average. REVIEW OF SYSTEMS: A complete review is performed and is notable for the absence of any recent fevers or chills. She has had progressive weight gain over the last year, around 5 pounds in the last several months. She denies any vision change or ENT problems. She has had a dry nonproductive cough, but denies any hemoptysis. No history of any peptic ulcer disease or GI blood loss. Denies any genitourinary complaints or hematuria. Denies any unusual musculoskeletal complaints or any history of stroke or TIA. No history of any thyroid or bleeding disorder. She denies any unusual anxiety or depression. PHYSICAL EXAMINATION: General, very pleasant, moderately obese elderly female who appears mildly dyspneic, but in no distress. HR 148, BP 117/80 with O2 saturation 97% on room air. Her weight is 95.8 kg, unchanged from yesterday. Skin warm and dry. She has an inguinal crease fungal infection. HEENT: EOMI with notable arcus. She is edentulous. Lungs: Dullness at both bases with reduced breath sounds and slight crackles in the mid lung faith. Cardiovascular nonpalpable PMI with a fairly rapid irregular rhythm with distant heart tones, but no appreciable murmurs or gallops. JVP appears to be around 8-9 cm. Carotid and femoral pulses are 2+ bilaterally with a normal upstroke without bruit. Dorsalis pedis and posterior tibial pulses are nonpalpable. Abdomen moderately obese, but nondistended nontender without any palpable masses or hepatosplenomegaly. Number of bowel tones are present without bruits. Extremities: 2-3+ bilateral pitting edema up to the knee with dermatologic changes of chronic stasis. Neurologic moves all four extremities. Psychiatric, awake, alert, and oriented. LABORATORY: White count is 10.9 with hematocrit of 42.4%. INR is 3.6 on admission, 3.3 today. Her BUN this morning is 49 with a creatinine of 1.7 with a glucose of 116. Magnesium level is 2.7 yesterday with a potassium this morning at 3.8. ALT was 42 and 33 this morning. Her initial troponin was 0.03, but has now fallen to less than 0.01. Procalcitonin is elevated at 0.13. Chest x-ray: Suggests the absence of any pleural effusions without any infiltrates. ECG shows atrial fibrillation at 151 beats per minute with a left anterior fascicular block, but essentially unchanged from her ECG from December. IMPRESSION: 1. Chronic persistent atrial fibrillation now with inadequate heart rate control. It is not clear why she should have developed poor heart rate control when it was presumably well controlled for the last 20 years. Yet, she clearly has significantly increased heart rates and I am concerned that she has developed a tachycardia mediated cardiomyopathy with associated congestive heart failure. An echocardiogram will be obtained to reassess left ventricular systolic function, but I would like to avoid diltiazem. Given that she was on metoprolol previously, I would like to avoid any rebound effects from stopping this and therefore will start her on esmolol IV. In addition, I will give her IV digoxin in an attempt to improve her heart rate control transiently, although the long-term use of this may be limited by her renal insufficiency. Finally, in an effort to provide short-term heart rate control, I will institute amiodarone as well for its rate reducing characteristics with no plans for cardioversion. I would like to avoid this in the long run and if further adjustments of her oral medications fails to produce adequate heart rate control then AV jess ablation with pacemaker implantation would be appropriate. In the meantime, I would make sure that her potassium stays greater than 4.0. 2. Probable congestive heart failure. She clearly has some evidence of fluid overload, concerning for possible tachycardia mediated cardiomyopathy or reduced cardiac output because of her rapid heart rates. I agree with the use of torsemide and hopefully this will improve once heart rate has been adequately controlled. She will require close observation of her renal function. 3. Chronic renal insufficiency with recent worsening. As above, this will need to be followed closely. 4. Probable sleep apnea. This may be contributing to her right heart failure. Reassessment with a sleep study and possible reattempts at CPAP treatment should be pursued. This can be deferred to the outpatient setting once her heart rate is adequately controlled. 5. Borderline abnormal myocardial perfusion imaging study. Her sestamibi study shows some nonspecific subtle partially reversible defects. I would reassess an ischemic evaluation once her heart rate is adequately controlled. There is no evidence for any acute coronary syndrome, and I suspect that her elevated troponin on admission more likely reflected her rapid heart rate and renal insufficiency. 6. Peripheral neuropathy. 7. Borderline diabetes. Per the hospitalist. 8. Hyperlipidemia. Lipid panel should be checked as an outpatient and given her borderline diabetes, statin therapy should be instituted if her LDL is greater than 100. RECOMMENDATIONS: 1. Stop IV diltiazem and start esmolol with upper titration if her blood pressure allows. 2. Bolus injection of digoxin 0.5 followed by 0.25 mg. This can be continued as needed, but with close observation for any of her digoxin level if repeated doses are required. 3. Institution of oral amiodarone. 4. Continue to track electrolytes and renal function and supplement her potassium to greater than 4.0. 5. Once a stable oral regimen has been achieved, I suspect that she can be discharged with follow up with Dr. Ingram for consideration of the jess ablation and pacemaker placement if adequate heart rate control cannot be achieved. 6. Check an echocardiogram today. 7. Outpatient sleep study and a lipid evaluation. TIME: I spent 1 hour and 40 minutes reviewing the patient's medical record, interviewing and examining the patient, and answering her questions.
[2017-04-26] MEDS: Esmolol 2,500 mg/250 mL NS 2,500,000 MCG in IV Premix 1 EACH IV SCH ×3 (10:33→22:47)
[2017-04-26] MEDS: Potassium Chloride 20 mEq SR Tablet PO SCH (10:48)
--- NOTE | 2017-04-26 11:14 | NUR ---
Esmolol gtt initiated at 50mcg/kg after Dig load 0.5mg per Primary RN and esmolol bolus 25,000mcg. ON 50mcg, heart rate remains in the 125-130's, gtt increased to 75mcg with rate now 102-120's. SBP 96-115, MAP 72-80's. Please see vital signs for details. Plan to move to CCU for Esmolol management when bed available. Will continue to follow along with bedside RN until that time.
--- NOTE | 2017-04-26 13:43 | PCM.PNMED ---
Subjective Date of Service Apr 26, 2017 Subjective Today the patient states that she feels slightly improved compared to presentation. She has yet to greatly test her stamina but states that her SOB has improved. Denies palpitations or chest pain. No significant overnight events. Comprehensive ROS negative except as listed above. Exam Vital Signs Vital Sign - Last Date Time Temp Pulse Resp B/P Pulse Ox O2 Delivery O2 Flow Rate FiO2 04/26/17 13:19 99 22 110/61 97 Nasal Cannula 04/26/17 12:20 36.4 2.00 Intake and Output 04/25/17 04/25/17 04/26/17 Cumulative From/Thru 15:00 23:00 07:00 04/25/17 07:46 - 04/26/17 05:39 Intake Total 400 ml 303 ml 703 ml Output Total 650 ml 650 ml Balance 400 ml -347 ml 53 ml Intake Oral 400 ml 200 ml 600 ml IV Total 103 ml 103 ml Output Urine Total 650 ml 650 ml # Voids 1 1 Exam Gen: A/O x3 pleasant cooperative elderly woman in NAD Neck: Supple, no JVD, full ROM HEENT: PERRL, EOMI, no scleral icterus CV: Irregularly irregular with tachycardia rate approx 100, no murmurs rubs or gallops Resp: Mild diffuse expiratory wheezing, no rales or rhonchi Abd: Soft, obese, no rebound guarding masses or tenderness Extr: Mild BL LE pitting edema, no clubbing or cyanosis Neuro: CN 2-12 grossly intact, no focal neuroligic deficit Psych: Pleasant and appropriate mood and affect. IVs and Medications Medications Reviewed: Medications were reviewed in detail Lab and Diagnostics Item Value Date Time Red Blood Count 4.50 mil/mm3 04/26/17 023 Mean Corpuscular Volume 94.2 fL 04/26/17 023 Mean Corpuscular Hemoglobin 30.9 pg 04/26/17 023 Mean Corpuscular Hemoglobin Concent 32.8 % 04/26/17 023 Red Cell Distribution Width 15.8 % H 04/26/17 023 Neutrophils (%) (Auto) 71.1 % 04/26/17 023 Lymphocytes (%) (Auto) 15.2 % 04/26/17 023 Monocytes (%) (Auto) 10.9 % 04/26/17 023 Eosinophils (%) (Auto) 2.3 % 04/26/17229 Basophils (%) (Auto) 0.3 % 04/26/17229 Estimat Glomerular Filtration Rate 42 mL/min 04/26/17229 Calcium Level 9.8 mg/dL 04/26/17229 Phosphorus Level 3.7 mg/dL 04/26/17229 Total Bilirubin 0.9 mg/dL 04/26/17229 Alanine Aminotransferase (ALT/SGPT) 33 U/L H 04/26/17229 Aspartate Amino Transf (AST/SGOT) 28 U/L 04/26/17229 Alkaline Phosphatase 132 U/L 04/26/17229 Troponin T < 0.010 ug/L 04/25/172008 Total Protein 5.6 g/dL L 04/26/17229 Albumin 3.4 g/dL 04/26/17229 Result Diagram: 04/26/1722904/26/17229 Microbiology Blood culture pending. X-Rays, CTs and MRIs PROCEDURE: X-RAY CHEST, TWO VIEWS IMPRESSION: Scattered mild bilateral interstitial opacities possibly chronic scarring, although in the absence of comparison studies it would be difficult to exclude early pulmonary edema therefore please correlate clinically. Elsewhere, no acute abnormality Elevation of the right hemidiaphragm. Dictated by: Sathish Elkins M.D. on 12/10/2016 at 16:52 PROCEDURE: X-RAY CHEST, TWO VIEWS IMPRESSION: No overt heart failure or pneumonia is evident. Dictated by: Brenden Daly M.D. on 12/18/2016 at 12:47 PROCEDURE: X-RAY CHEST ONE VIEW, PORTABLE IMPRESSION: Reduced inspiratory volume, no acute disease, no pneumonia found. Chronic mild elevation of the right diaphragm Dictated by: Bj Lombardo M.D. on 04/25/2017 at 8:14 Assessment & Plan Patient is an 81 y/o female with a Afib-on Warfarin, hypertension, and had an episode of CHF in November 2016 who presented with increasing shortness of breath with palpitations. Admitted with Afib with RVR. Acute exacerbation of chronic Atrial Fibrillation, POA, Active. - Patient in Afib with RVR. She has been compliant on medications, but has been feeling increasingly short of breath the last few months. Recent CHF in November 2016, and increasing SOB indicates this is likely secondary to fluid overload or CHF. 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 -Patient has been increasingly short of breath over the last few months with a reported "CHF visit in November of 2016". No formal diagnosis. -pro-BNP was 8005 in the ED with a previous BNP of 2716 on 12/18/16. -Diuresis with Torsemide as above. -Echo pending -Cardiology consulted as above -Strict I&Os, with daily weights. -low salt diet. Acute Kidney Injury, POA, Active. -SCr on 12/18/16 was 1.59. SCr on admission was 1.99, uncertain of the cause of this at this time. -BUN/Cr ratio 24.6 upon presentation -Avoid Nephrotoxic agents. -Renal function panel Elevated Troponin of unknown significance, POA, Active -Patient had a troponin of 0.028 in the ED @0700 without any trends. Patient had no complaints of chest pain on admission. -Trended to negative reading H/o HTN. Stable -Hold Beta blockers while on Diltiazem -Continue Losartan home dose. PPI: Famotidine Pain Control: Acetaminophen Constipation ppx: Senna, Miralax Nausea: Zofran Patient DNR/DNI Disposition: Patient is still being titrated to effective dosing of cardiac medications, anticipate 1-2 more days of IV rate and rhythm control. Pain Evaluation: Adequate Pain Control GI Prophylaxis: Proton Pump Inhibitor VTE Prophylaxis: Theraputic Anticoag with Warfarin Resuscitation Status: DNR/DNI:Do Not Resuscitate/Intubate Attending Statement Patient with acute on chronic systolic congestive heart failure who presented with shortness of breath, generalized weakness in the setting of chronic atrial fibrillation now with rapid ventricular response. The patient was seen and examined together with Dr. Henry on 04/26/2017 and I agree with the history, exam and plan as outlined in the note above. . Sukhdev Henry DO Apr 26, 2017 13:42 Harpreet Richardson MD Apr 26, 2017 16:08
[2017-04-26] MEDS: Diltiazem HCl 125 MG in 0.9% Sodium Chloride 100 ML, Pharmacy To Mix 1 EA IV SCH (14:58)
--- NOTE | 2017-04-26 15:31 | DRSVH ---
[facility] [address] [place] [address] Echocardiogram Report Name: FEDE ANDRADE te: 04/26/2017 Height: 64 in Hospital Exam Location: [facility] Weight: 211 lb Gender: Female BSA: 2.0 m2 : 1935 Age: 81 yrs BP: 100/57 mm Hg Reason For Study: Atrial fibrillation with RVR History: HTN, AFIB Ordering Physician: Performed By: Ashley Tabor Referring Physician: Richard Ingram Interpretation Summary Left ventricular systolic function is moderately reduced with the ejection fraction visually estimated to be 40-45% but appears slightly more dynamic compared to the previous study. There are no focal wall motion abnormalities. There is mild-moderate concentric left ventricular hypertrophy. The right ventricle is at the upper limits of normal in size and appears slightly larger compared to the previous study. Right ventricular systolic function is moderately reduced but unchanged compared to the previous study. The right ventricular systolic pressure is estimated at 40 mmHg assuming a right atrial pressure of 15 mm Hg, which is similar to the previous study. The left atrium is mildly dilated while right atrial size is normal and both appear unchanged compared to the previous study. There is mild mitral regurgitation that is unchanged compared to the previous study. There is mild tricuspid regurgitation that is slightly more prominent compared to the previous study. There is a small right-sided pleural effusion that is new compared to the previous study. The patient was in atrial fibrillation with heart rates between 83-135 bpm during the exam which is slightly slower compared to the previous study. Procedure: A two-dimensional transthoracic echocardiogram with color flow and Doppler was performed. Comparison is made with the echocardiogram of 12/18/2016. The patient was in atrial fibrillation with heart rates between 83 -135 bpm during the exam. This is slightly slower compared to the previous study. Left Ventricle: The left ventricle is normal in size. There is mild- moderate concentric left ventricular hypertrophy. Left ventricular systolic function is moderately reduced. The ejection fraction is estimated to be 40- 45%. This is slightly more dynamic compared to the previous study. There are no focal wall motion abnormalities. Diastolic function could not be accurately assessed due to atrial fibrillation. Right Ventricle: The right ventricle is at the upper limits of normal in size. This is slightly larger compared to the previous study. Right ventricular systolic function is moderately reduced. This is unchanged compared to the previous study. Atria: The left atrium is mildly dilated. Right atrial size is normal. This is unchanged compared to the previous study. The interatrial septum is intact with no evidence for an atrial septal defect. Mitral Valve: There is mild to moderate mitral annular calcification. There is mild mitral regurgitation. This is unchanged compared to the previous study. Aortic Valve: There is discrete nodular thickening of the non- coronary cusp. The aortic valve is slightly calcified. The aortic valve opens well. There is no aortic valve stenosis. There is trace aortic regurgitation. This is unchanged compared to the previous study. Tricuspid Valve: The tricuspid valve leaflets are thin and pliable. There is mild tricuspid regurgitation. This is slightly more prominent compared to the previous study. The right ventricular systolic pressure is estimated at 40 mmHg assuming a right atrial pressure of 15 mm Hg. This is unchanged compared to the previous study. Pulmonic Valve: The pulmonic valve is not well seen, but is grossly normal. There is a trace or physiologic amount of pulmonic regurgitation. Great Vessels: The aortic root is normal size. The ascending aorta is normal in size. The IVC is dilated (diameter is greater than 2.1 cm) and it collapses less than 50% with a sniff. This suggests a high right atrial pressure of 15 mm Hg. Pericardium/ Pleura There is no pericardial effusion. There is a small right-sided pleural effusion. This is new compared to the previous study. MMode/2D Measurements & Calculations LVIDd: 3.9 cm RA long axis LVOT diam LVIDs: 2.8 cm LA A2 area: 26.2 cm FS: 28.4 % LA A4 area: 21.2 cm RA area AoV Opening EPSS: 0.81 cm LA length (vol): 6.9 cm IVSd: 1.3 cm LA vol: 68.0 ml : 19.9 cm Ao root diam LVPWd: 1.1 cm LA vol index RA vol : 56.4 ml asc Aorta RA Diam: 3.1 cm IVC diam: 2.5 cm : 28.2 mm2 LV valdez. diameter/BSA LV sys. diameter/BSA RVD1 (basal) TAPSE: 1.2 cm (cm/m^2): 2.0 (cm/m^2): 1.4 Doppler Measurements & Calculations Ao V2 max: 112.0 cm/secMV E max clyde Med Peak E' Clyde TR max clyde Ao max P.0 mmHg : 97.8 cm/sec : 250.2 cm/sec Ao mean P.1 mmHg E/E' med: 16.1 TR max PG LVOT Max Clyde : 25.1 mmHg : 69.5 cm/sec PA V2 max AYSE(I,D): 1.4 cm : 58.7 cm/sec sev ratio: 0.64 PA mean PG : 0.77 mmHg PA Accel Time : 0.08 sec MV dec time: 0.11 sec Ao V2 mean LV V1 max PG PA V2 mean : 83.5 cm/sec : 41.2 cm/sec Ao V2 VTI LV V1 VTI: 13.3 cm AYSE(V,D): 1.4 cm2 AYSE indexed to BSA (cm^2/m^2): 0.71 Reading Physician:03:29 PM
--- NOTE | 2017-04-26 18:02 | NUR ---
Esmolol gtt Esmolol drip @ 75mcg/kg (43.1mls/hr). Second loading dose of Dig 0.25mg administered. Pt HR 92-110. SBP 100-110, MAP 71-80. Vital signs performed q1hr. Please see vital signs for details. Pt states she has decreased SOB at rest.
[2017-04-26] MEDS: MeTOProlol XL 50 mg ER24 Tablet PO SCH (19:51)
[2017-04-27] VITALS (11 sets, daily range): BP systolic 97–126; BP diastolic 53–76; PULSE 102–120; RESP 18–24; O2SAT 92–96
[2017-04-27 03:23] LABS: BASOPHILS % (AUTO) 0.4 % (0-3); EOSINOPHILS % (AUTO) 3.4 % (0-5); MONOCYTES % (AUTO) 14.1 % (4-12); Mean Corpuscular Hemoglobin 31.3 pg (27.0-35.0); Mean Corpuscular Volume 94.9 fL (81-100); NEUTROPHILS % (AUTO) 70.5 % (40-74); Platelet Count 209 bil/L (150-400)
[2017-04-27 03:33] LABS: INR 3.05 ratio
[2017-04-27 03:53] LABS: Magnesium 2.4 mg/dL (1.6-2.6); Phosphorus 2.8 mg/dL (2.5-4.9)
--- NOTE | 2017-04-27 04:44 | NUR ---
Cardiac Pt currently on Esmolol @ 75 mcg/kg (43.1 mL/hr) and tolerating well. Tele Afib 80's to 120's,BP have been systolically over 100 with maps 65-80. HR will increase to 115 120 with activity. Pt placed on 2L NC during the night as SpO2 dropped into the upper 80's. VSS.
[2017-04-27] MEDS: Potassium Chloride 20 mEq SR Tablet PO SCH (08:23)
--- NOTE | 2017-04-27 10:34 | PCM.PNMED ---
Subjective Date of Service Apr 27, 2017 Subjective Overnight, the patient will place on 2 L nasal cannula as SPO2 dropped into the upper 80s. Vital signs were stable. Today, patient states that she has been feeling better overall. She reports that she is sometimes aware of her palpitations in addition to feeling intermittent air hunger. Review of systems significant for shortness of breath and palpitations. She denies headaches, visual changes, chest pain, nausea, vomiting, abdominal pain, bowel changes and dysuria. Exam Vital Signs Vital Sign - Last Date Time Temp Pulse Resp B/P Pulse Ox O2 Delivery O2 Flow Rate FiO2 04/27/17 03:10 102 22 118/67 92 Nasal Cannula 2.00 04/27/17 00:18 36.4 Intake and Output 04/26/17 04/26/17 04/27/17 Cumulative From/Thru 15:00 23:00 07:00 04/25/17 07:46 - 04/27/17 06:30 Intake Total 1044 ml 895 ml 2642 ml Output Total 1500 ml 850 ml 3000 ml Balance -456 ml 45 ml -358 ml Intake Oral 750 ml 400 ml 1750 ml IV Total 294 ml 495 ml 892 ml Output Urine Total 1500 ml 850 ml 3000 ml # Voids 5 6 # Bowel Movements 0 1 1 Exam General: Patient is ill-appearing but lying comfortably on bed, AAOX3, not in acute distress, cooperative and pleasant. HEENT: head normocephalic and atraumatic, PERRLA, EOMI, no scleral icterus, noninjected conjunctiva Neck: neck supple, non-tender, no lymphadenopathy, trachea midline CV: Irregularly irregular, s1 and s2 heard, no murmur, radial pulses difficult to palpate, 2+ edema in the extremities bilaterally Lungs: Clear to auscultation bilaterally, no wheezes, rales or rhonchi, no increased work of breathing Abdomen: normoactive bowel sounds on 4Q, soft, non-distended, non-tender to palpation, no organomegally, Skin: warm and dry, venous stasis changes on left leg Musculoskeletal: Legs are tender to palpation, full ROM bilaterally Neuro: Grossly neurologically intact, cranial nerves II through XII intact Psych: Normal mood and affect IVs and Medications IV Fluids 250 mL normal saline delivered with IV medications Medications Reviewed: Medications were reviewed in detail Medications High-risk medications include esmolol drip, temazepam and warfarin Lab and Diagnostics Laboratory Tests Test 04/27/17 02:45 04/27/17 12:00 White Blood Count 11.0th/mm3 (3.8-10.1) Red Blood Count 4.54mil/mm3 (3.90-5.20) Hemoglobin 14.2g/dL (12.0-15.6) Hematocrit 43.1% (35.0-46.0) Mean Corpuscular Volume 94.9fL (81-100) Mean Corpuscular Hemoglobin 31.3pg (27.0-35.0) Mean Corpuscular Hemoglobin Concent 32.9% (32.0-37.0) Red Cell Distribution Width 15.7% (12.3-15.4) Platelet Count 209bil/L (150-400) Neutrophils (%) (Auto) 70.5% (40-74) Lymphocytes (%) (Auto) 11.3% (14-46) Monocytes (%) (Auto) 14.1% (4-12) Eosinophils (%) (Auto) 3.4% (0-5) Basophils (%) (Auto) 0.4% (0-3) Prothrombin Time 33.4sec (8.1-12.5) Prothromb Time International Ratio 3.05ratio Sodium Level 138mEq/L (134-144) Potassium Level 4.4mEq/L (3.5-5.2) Chloride Level 99mEq/L (97-108) Carbon Dioxide Level 24mmol/L (18-29) Blood Urea Nitrogen 48mg/dL (8-27) Creatinine 1.79mg/dL (0.57-1.00) Estimat Glomerular Filtration Rate 39mL/min (>59) Glucose Level 107mg/dL (60-99) Calcium Level 9.7mg/dL (8.5-10.1) Phosphorus Level 2.8mg/dL (2.5-4.9) Magnesium Level 2.4mg/dL (1.6-2.6) Microbiology 04/25/17 Blood Culture - Preliminary, Resulted NO GROWTH AFTER 24 HOURS 04/25/17 Urine Culture - Final, Complete No growth (<1,000 organisms/mL) Result Diagram: 04/27/17 0245 04/27/17 0245 Microbiology Blood culture pending. X-Rays, CTs and MRIs PROCEDURE: X-RAY CHEST, TWO VIEWS IMPRESSION: Scattered mild bilateral interstitial opacities possibly chronic scarring, although in the absence of comparison studies it would be difficult to exclude early pulmonary edema therefore please correlate clinically. Elsewhere, no acute abnormality Elevation of the right hemidiaphragm. Dictated by: Sathish Elkins M.D. on 12/10/2016 at 16:52 PROCEDURE: X-RAY CHEST, TWO VIEWS IMPRESSION: No overt heart failure or pneumonia is evident. Dictated by: Brenden Daly M.D. on 12/18/2016 at 12:47 PROCEDURE: X-RAY CHEST ONE VIEW, PORTABLE IMPRESSION: Reduced inspiratory volume, no acute disease, no pneumonia found. Chronic mild elevation of the right diaphragm Dictated by: Bj Lombardo M.D. on 04/25/2017 at 8:14 Cardiac Echo Impressions ECHO on 04/26: Left ventricular systolic function is moderately reduced with the ejection fraction visually estimated to be 40-45% but appears slightly more dynamic compared to the previous study. There are no focal wall motion abnormalities. There is mild-moderate concentric left ventricular hypertrophy. Assessment & Plan Patient is an 81 y/o female with a Afib-on Warfarin, hypertension, and had an episode of CHF in November 2016 who presented with increasing shortness of breath with palpitations. Admitted with Afib with RVR. Acute exacerbation of chronic Atrial Fibrillation, POA, Active. - Patient in Afib with RVR. She has been compliant on medications, but has been feeling increasingly short of breath the last few months. Recent CHF in November 2016, and increasing SOB indicates this is likely secondary to fluid overload or CHF. -DC dilt drip -DC digoxin due to renal insufficiency -Per cardiology, Continue Esmolol drip 75 mcg per kg per minute for rate control and titrate up to goal rate less than 100 beats per minute. -Continue amiodarone 400 mg po q 8 for rate control -Continue home dose of Losartan -Cardiology consulted and we appreciate their expertise -ECHO shows an EF of 40-45%, and dilated left atria AFib with -On warfarin, INR has been therapeutic - Cardio recommends npo after midnight and attempt to cardiovert her maybe tomorrow and see if that helps if maybe she is eligible for rhythm control Acute Shortness of Breath, POA, Active. -Patient has been increasingly short of breath over the last few months with a reported "CHF visit in November of 2016". No formal diagnosis. -pro-BNP was 8005 in the ED with a previous BNP of 2716 on 12/18/16. -Per cardiology, Stop torsemide and start diuresis with Lasix 40 mg IV -Cardiology consulted as above -Strict I&Os, with daily weights. -low salt diet. Acute Kidney Injury, POA, Active. -SCr on 12/18/16 was 1.59. SCr on admission was 1.99, uncertain of the cause of this at this time -Today, creatinine has improved to 1.79 -BUN/Cr ratio 24.6 upon presentation -Avoid Nephrotoxic agents. -Hold digoxin due to renal insufficiency -Hold losartan due to renal insufficiency -Renal function panel Elevated Troponin of unknown significance, POA, Resolved -Patient had a troponin of 0.028 in the ED @0700 without any trends. Patient had no complaints of chest pain on admission. -Trended to negative reading H/o HTN. Stable -Hold Beta blockers -Hold losartan due to POLO. PPI: Famotidine Pain Control: Acetaminophen Constipation ppx: Senna, Miralax Nausea: Zofran Patient DNR/DNI Disposition: Patient is still being titrated to effective dosing of cardiac medications, anticipate 1-2 more days of IV rate and rhythm control. GI Prophylaxis: Proton Pump Inhibitor VTE Prophylaxis: Theraputic Anticoag with Warfarin Resuscitation Status: DNR/DNI:Do Not Resuscitate/Intubate Time spent 30 minutes Attending Statement I have seen and evaluated patient at bedside in addition to directly supervising care provided by Dr Turcios on 04/27/2017. I agree with above documentation. Mamie Turcios DO Apr 27, 2017 06:56 Camden Martinez DO Apr 28, 2017 07:34
[2017-04-27] MEDS: Furosemide 10 mg/mL 4 mL Inj IVPUSH SCH (11:16)
[2017-04-27] MEDS: Esmolol 2,500 mg/250 mL NS 2,500,000 MCG in IV Premix 1 EACH IV SCH ×4 (11:16→22:47)
--- NOTE | 2017-04-27 11:30 | NUR ---
Social Work: Initial Assessment/Multidisciplinary Rounds D: Per EMR review, pt is an 81 year old female admitted for Afib with RVR, CHF. Pt is [facility] with Medicare; pt has no LTC or VA benefits. PCP is Anne Mason DO with the [facility]. NOK is Lui Richy, dtr, . Advanced directives requested for chart. Readmit score is low, 2/8. Pt discussed in multidisciplinary rounds; Capacity for self-care and d/c needs discussed. No concerns at this time. Pt is I at baseline and ambulates with a 4WW. TAXICAB DISPATCHER met with the patient at bedside. Sw role explained, contact information and discharge planning checklist provided; see initial assessment. Pt lives in [place], alone in a single story home with 1 step to enter. Pt is I with ADLs and self care and confirms that she uses a 4WW for ambulation. Pt continues to drive and has never had HH or skilled rehab. Pt states that she has hired people to do her cleaning and laundry. Pt anticipates no discharge needs and states her daughter will transport. Pt is receptive to discharge planning if needs arise. A: Pt who is I at baseline and lives at home, alone. P: Anticipate pt to discharge home via POV; TAXICAB DISPATCHER to continue to follow to assess for unmet discharge needs. CURRY Herman Addendum: 04/27/17 at 1135 by LEE ANN GRIFFIN Amended: Links added.
--- NOTE | 2017-04-27 11:42 | PROG NOTE ---
[address] [address] PROGRESS NOTE PATIENT: FEDE ANDRADE : 1935 MR#: [id number] ADMIT: 04/25/2017 JOB ID: [id number] DATE: 04/27/2017 SUBJECTIVE: Overnight, patient says she slept well. She continues to report intermittent awareness of palpitations and shortness of breath. OBJECTIVE: Vital signs: Temperature 36.4, blood pressure 118/67 up to 126/53, pulse 102 up to 120 beats per minute. She is satting 92% to 96% on 2 L nasal cannula. Ins and outs: Yesterday she was out 803 mL out more than in. Her weight on the standing scale is down 0.2 kg compared to admission weight. Chronically ill-appearing, elderly woman in no apparent distress. Eyes no scleral icterus. Neck is supple, no carotid bruits. Heart normal S1, S2, irregularly irregular, no murmurs. Lungs with diminished breath sounds at right lung base. Abdomen is soft, positive bowel sounds. Extremities moderate edema. Legs are tender to palpation. There is venous stasis change on the anterior left. LABORATORIES: Reviewed. Creatinine today was 1.8, which is her baseline. Potassium 4.4, troponin T negative. TSH from clinic was normal. She has minimally elevated ALT, otherwise normal labs. CBC shows chronically elevated white count at 11. Hematocrit and platelet count is normal. Labs from outpatient settings were reviewed. It looks like she has abnormal lipids as of November 2016 total cholesterol 223, triglycerides 166, HDL 33, LDL 157. ASSESSMENT AND PLAN: 1. This is an 81-year-old woman with atrial fibrillation, but she says that she has had atrial fibrillation for 20 years, but she has not seen a traffic inspector until she met with Dr. Ingram about a month ago. So, we do not know for sure whether she has chronic atrial fibrillation or paroxysmal atrial fibrillation. Judging from the appearance of her echocardiogram she has quiet dilated left atria, and I suspect she has had chronic atrial fibrillation for a long time. 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 Her rates have been difficult to control. Attempts at diuresis are complicated by a renal insufficiency which appears to be chronic. Her creatinine has been 1.6-1.8 since at least December 2016. No obvious reversible cause for tachycardia has been identified. In particular her TSH is normal. She has chronic mild right ventricular dilation that predates her symptoms going back to December 2016. Plan: AFib with RVR-currently she is on esmolol drip 75 mcg per kg per minute, amiodarone 400 mg 3 times a day, and digoxin. I held the digoxin due to renal insufficiency. Will continue amiodarone strictly for rate control and continue esmolol drip to titrate up to goal rate less than 100 beats per minute. 2. Chronic kidney disease. Losartan is on hold. Will attempt to diurese her to help her with moderate lower extremity edema. Stop torsemide 40 mg daily and start Lasix 40 mg IV at least daily with goal out more than in by a liter. 3. Anticoagulation: Patient has been on warfarin for the past 20 years and her last available INRs performed April 02 and April 15, 2017 have been therapeutic. Her INRs in the hospital likewise have been therapeutic. I recommend attempt to diurese her n.p.o. after midnight and attempt to cardiovert her maybe tomorrow and see if that helps if maybe she is eligible for rhythm control. I am somewhat pessimistic given the degree of left atrial enlargement while based on size left atrial volume index of 34 mL/m2 it could of been under called by echocardiography. If we failed to achieve rhythm control, the next option for this patient is AV junction ablation with biventricular pacemaker versus single lead RV permanent pacemaker. Her EF as of April 26, 2017 was not severe enough to warrant ICD implant. At that time EF was 40 to 45%. The patient understands the plan. All questions were answered. Thank you very much for the opportunity to participate in her care.
--- NOTE | 2017-04-27 17:29 | NUR ---
Attempted to titrate Esmolol infusion rate for improved HR control per lead programmer with resulting hypotension; MD aware, hypotension resolved. HR 90-110s at rest, elevated with activity. Lasix given today, nearly 2 liters UOP. Up to BSC with assist frequently. Sitting up reading, in good spirits, appears in no distress.
[2017-04-28] VITALS (7 sets, daily range): BP systolic 109–129; BP diastolic 57–79; PULSE 60–112; RESP 14–22; O2SAT 93–98
[2017-04-28 03:50] LABS: BASOPHILS % (AUTO) 0.4 % (0-3); EOSINOPHILS % (AUTO) 3.6 % (0-5); MONOCYTES % (AUTO) 12.3 % (4-12); Mean Corpuscular Hemoglobin 31.5 pg (27.0-35.0); Mean Corpuscular Volume 94.8 fL (81-100); NEUTROPHILS % (AUTO) 72.7 % (40-74); Platelet Count 216 bil/L (150-400)
[2017-04-28] MEDS: Esmolol 2,500 mg/250 mL NS 2,500,000 MCG in IV Premix 1 EACH IV SCH (04:37)
--- NOTE | 2017-04-28 06:06 | NUR ---
Cardiac/O2/NPO Tele Afib, mostly 90s-110s at rest, up to 120s w/ activity. SBP >100 most of night, see vitals, Q1H vitals done. Per day report, esmolol titration resulted in hypotension so pt to remain at 75mcg/kg/min. Pt tolerated this well. Denies pain but noted to have SOB w/ exertion. Pt up to BSC multiple times during night w/ 1 PA to urinate. See I&Os for totals. Pt placed on 2L NC d/t desats to high 80s while asleep. In case of cardioversion, pt kept NPO after midnight, except for PO amiodarone dose around 0100.
[2017-04-28] MEDS: Potassium Chloride 20 mEq SR Tablet PO SCH (07:47)
[2017-04-28] MEDS: Furosemide 10 mg/mL 4 mL Inj IVPUSH SCH (07:48)
--- NOTE | 2017-04-28 09:00 | NUR ---
Esmolol/tele Tele Afib 100s-110s. BP in normaml range. Titrated esmolol from 75mcg/kg/min to 100mcg/kg/min. Will monitor vitals closely.
[2017-04-28 10:40] LABS: INR 2.23 ratio
--- NOTE | 2017-04-28 10:54 | PROG NOTE ---
[address] [address] PROGRESS NOTE PATIENT: FEDE ANDRADE : 1935 MR#: [id number] ADMIT: 04/25/2017 JOB ID: [id number] DATE: 04/28/2017 SUBJECTIVE: Patient continues to feel short of breath with physical activity. OBJECTIVE: Vital signs: Temperature 36.6, blood pressure 109/63 up to 116/76, pulse 97 up to 112 beats per minute. Satting 93% to 98% on 2 L nasal cannula. Well-nourished woman in no apparent distress eyes no scleral icterus. Heart normal S1, S2 irregularly irregular, no murmurs. Lungs with diminished breath sounds at the right lung base. Abdomen is soft, positive bowel sounds. Extremities moderate edema bilaterally. CURRENT MEDICATIONS: 1. Lasix 40 mg IV daily, most recent dose this morning. 2. Potassium chloride 20 mEq daily. 3. Amiodarone 400 mg every 8 hours. 4. Esmolol drip. 5. Warfarin. 6. Metoprolol tartrate as needed. ASSESSMENT AND PLAN: In summary, this is an 81-year-old woman with atrial fibrillation for the past 20 years. We do not know for sure if she has chronic atrial fibrillation or paroxysmal atrial fibrillation. I suspect she has had chronic atrial fibrillation for a long time and now she has worsening tachycardia mediated cardiomyopathy with most recent ejection fraction of 35-45%. Tachycardia: Unable to control with medical therapy. Dr. Ingram is out of town and unavailable to perform atrioventricular junction ablation and pacemaker implant at this time as the patient requests to go home. So, I think it is reasonable to try to send her home on torsemide 40 mg daily, metoprolol succinate 200 mg twice a day, and warfarin for stroke prevention. I think it is reasonable to try on digoxin 0.125 mg every other day and warfarin. We discussed the risks of diltiazem which could cause lower extremity edema. Patient already suffers from lower extremity edema, and she is not interested in taking this medication. Additionally we discussed amiodarone and the possible side effects including life-threatening lung toxicity and patient is understandably concerned about side effects so will go ahead and stop this medication. She has an appointment Dr. Ingram on Thursday to discuss atrioventricular junction ablation and the pacemaker implant. Thank you very much for the opportunity to participate in her care.
--- NOTE | 2017-04-28 12:42 | PCM.DICHF ---
CHF Discharge Instructions Date of Service: Apr 28, 2017 Dates of Hospitalization Date of Hospital Admission Apr 25, 2017 at 14:17 Date of Discharge: Apr 28, 2017 Providers Admitting Physician: Harpreet Richardson MD Primary Care Physician: Anne Mason DO Attending Physician: Camden Martinez DO Diagnosis at Time of Discharge Diagnosis at time of discharge Acute exacerbation of chronic atrial fibrillation Tachycardia mediated cardiomyopathy with most recent ejection fraction of 35-45% Congestive heart failure Acute kidney injury Hypertension Problems: Labs Ejection Fraction Laboratory Tests Test Range/Units 04/25/17 07:45 04/25/17 20:09 04/27/17 02:45 04/27/17 12:00 Pro-B-Type Natriuretic Peptide 0-738 pg/mL 8005 Procalcitonin 0.00-0.08 ng/mL 0.13 Troponin T 0.0-0.011 ug/L < 0.010 Phosphorus Level 2.5-4.9 mg/dL 2.8 Magnesium Level 1.6-2.6 mg/dL 2.4 Test Range/Units 04/28/17 03:45 Sodium Level 134-144 mEq/L 140 Potassium Level 3.5-5.2 mEq/L 4.6 Chloride Level 97-108 mEq/L 100 Carbon Dioxide Level 18-29 mmol/L 25 Blood Urea Nitrogen 8-27 mg/dL 44 Creatinine 0.57-1.00 mg/dL 1.98 Estimat Glomerular Filtration Rate >59 mL/min 35 Glucose Level 60-99 mg/dL 123 Calcium Level 8.5-10.1 mg/dL 8.9 Total Bilirubin 0.0-1.2 mg/dL 0.8 Aspartate Amino Transf (AST/SGOT) 0-50 U/L 25 Alanine Aminotransferase (ALT/SGPT) 0-32 U/L 29 Alkaline Phosphatase 25-165 U/L 144 Total Protein 6.4-8.4 g/dL 5.5 Albumin 3.4-5.0 g/dL 3.3 Discharge Medications Other Medication Instructions You have received instructions on the medications your physician has prescribed at discharge. A list of these medications has been provided to you. Keep this and a list of all current medications with you. Keep the dates when you received the Flu and Pneumococcal (Pneumonia) Vaccines. Last known date of receiving Flu Vaccine Decline Last known date of receiving Pneumococcal (Pneumonia) Vaccine Diet Diet Instructions CHF Low Salt diet ( 2 grams or less sodium/day) Choose foods and drinks with low or no salt. Remove salt shaker from the table. Read Nutritional Facts labels. Activity CHF Discharge Activity: No restrictions Weight Monitoring 1. Weigh yourself every day at the same time and write it down. 2. Take your weight log to your doctor visits. 3. Call your doctor if you gain 3-5 pounds over 2-3 days. 4. Your weight today is 207.67 lbs. Additional Instructions [facility] Teaching Packet given and: Yes Smoking--Tobacco Use If you smoke, you are strongly encouraged to stop. If you have recently quit smoking, CONGRATULATIONS. For further information to stop smoking or to remain smoke-free, Patient Instructions: We will be sending you home with the following medication changes: torsemide 40 mg daily, metoprolol succinate 200 mg twice a day, and warfarin for stroke prevention, digoxin 0.125 mg every other day . You have follow-up appointment with Dr. Ingram on Thursday the to discuss atrioventricular junction ablation and the pacemaker implant.. Please continue to monitor your daily weights and follow up with her PCP, Dr. Mason later this week. Follow Up Plan Follow Up Plan Follow-up with Dr. Ingram cardiology on May 04. Also follow-up with PCP, Dr. Mason later this week to assess. Follow Up: Days Cardiology Follow-up Provider: 1 week Report or call your Doctor REPORT TO YOUR DOCTOR OR SEEK MEDICAL ATTENTION: *Shortness of breath or have more difficulty breathing. *Swelling of your feet, ankles, hands or abdomen. *Feeling tired with normal activity or experiencing dizziness or fainting. *Trouble sleeping or waking up feeling short of breath or coughing. *Chest pain or pressure. *Weight gain of 3-5 pounds over 2-3 days. *Inability to take medications or follow treatment plan Heart Attach warning signs HEART ATTACK WARNING SIGNS * Chest discomfort. *Discomfort or pain in one or both arms, back, neck, jaw or stomach. *Shortness of breath. *Breaking out in a cold sweat, nausea, or lightheadedness. If you're having heart attack warning signs: CALL . DON'T WAIT MORE THAN A FEW MINUTES - 5 MINUTES AT MOST - TO CALL . Mamie Turcios DO Apr 28, 2017 12:42
[2017-04-28] MEDS ORDERED: METO200T32 PO (12:51)
[2017-04-28] MEDS ORDERED: DIGO0.12 PO (12:51)
[2017-04-28] MEDS ORDERED: TORS20TA3 PO (12:51)
--- NOTE | 2017-04-28 13:42 | NUR ---
POST HOSPITAL FOLLOW UP: Scheduled hospital follow up with for 04/29/17 check in at 340 for 350 appointment. Updated PHYSICAL THERAPY DIRECTOR
--- NOTE | 2017-04-28 14:07 | NUR ---
Discharge Patient continues to be Afib with rate in the 100s. Patient declined cardioversion an will follow up with Dr Ingram on Thursday. All other VSS, denies pain/discomfort. IV DC'd intact. Discharge instructions and medication information printed and reviewed verbally with patient and her daughter. Patient left unit via wc with all personal belongings and discharged home via private vehicle.
--- NOTE | 2017-04-28 14:25 | NUR ---
Social Work: Discharge/Multidisciplinary Rounds D: Pt discussed in multidisciplinary rounds; pt refused cardioversion from Cardiology. MD has written for discharge on the patient. ONCOLOGY SOCIAL WORK inquired about HH option for the patient for management of CHF and weight checks. After conversation with the attending MD, the patients daughter and the patient, the patient does not require HH at this time. Pt's daughter who is an RN will do daily weights with the patient and understands that the pt will need to be seen if her weight fluctuates dramatically. Resident has placed a CM order to arrange the pt's PCP appointment. Ophthalmic Technologist has made the patient an appointment for 04/29/17 at 3:40pm. ONCOLOGY SOCIAL WORK met with the patient at bedside to confirm discharge plan. She states that she has no concerns and that her daughter is taking her home. She is aware of the follow up appointments made for her. A: Pt who is I at baseline P: Pt to discharge home via POV with close follow up from her daughter and a follow up appointment with her PCP. CURRY Herman
[2017-04-28] MEDS ORDERED: DIGO125T73 PO (15:30)
--- NOTE | 2017-04-28 18:19 | PCM.PNMED ---
Subjective Date of Service Apr 28, 2017 Subjective Attempted to titrate Esmolol infusion rate for improved HR control per senior national account manager with resulting hypotension; MD aware, hypotension resolved. HR 90- 110s at rest, elevated with activity. Lasix given today, nearly 2 liters UOP. Up to BSC with assist frequently. Sitting up reading, in good spirits, appears in no distress. Exam Vital Signs Vital Sign - Last Date Time Temp Pulse Resp B/P Pulse Ox O2 Delivery O2 Flow Rate FiO2 04/28/17 05:00 111 109/63 04/28/17 04:00 93 Nasal Cannula 2.00 04/28/17 02:41 37.0 22 Intake and Output 04/27/17 04/27/17 04/28/17 Cumulative From/Thru 15:00 23:00 07:00 04/25/17 07:46 - 04/28/17 02:41 Intake Total 435 ml 3077 ml Output Total 3000 ml Balance 435 ml 77 ml Intake Oral 1750 ml IV Total 435 ml 1327 ml Output Urine Total 3000 ml # Voids 6 # Bowel Movements 1 Lab and Diagnostics Result Diagram: 04/28/17 0345 04/28/17 0345 Microbiology Blood culture pending. X-Rays, CTs and MRIs PROCEDURE: X-RAY CHEST, TWO VIEWS IMPRESSION: Scattered mild bilateral interstitial opacities possibly chronic scarring, although in the absence of comparison studies it would be difficult to exclude early pulmonary edema therefore please correlate clinically. Elsewhere, no acute abnormality Elevation of the right hemidiaphragm. Dictated by: Sathish Elkins M.D. on 12/10/2016 at 16:52 PROCEDURE: X-RAY CHEST, TWO VIEWS IMPRESSION: No overt heart failure or pneumonia is evident. Dictated by: Brenden Daly M.D. on 12/18/2016 at 12:47 PROCEDURE: X-RAY CHEST ONE VIEW, PORTABLE IMPRESSION: Reduced inspiratory volume, no acute disease, no pneumonia found. Chronic mild elevation of the right diaphragm Dictated by: Bj Lombardo M.D. on 04/25/2017 at 8:14 Cardiac Echo Impressions ECHO on 04/26: Left ventricular systolic function is moderately reduced with the ejection fraction visually estimated to be 40-45% but appears slightly more dynamic compared to the previous study. There are no focal wall motion abnormalities. There is mild-moderate concentric left ventricular hypertrophy. Assessment & Plan Patient is an 81 y/o female with a Afib-on Warfarin, hypertension, and had an episode of CHF in November 2016 who presented with increasing shortness of breath with palpitations. Admitted with Afib with RVR. Acute exacerbation of chronic Atrial Fibrillation, POA, Active. - Patient in Afib with RVR. She has been compliant on medications, but has been feeling increasingly short of breath the last few months. Recent CHF in November 2016, and increasing SOB indicates this is likely secondary to fluid overload or CHF. -DC dilt drip -DC digoxin due to renal insufficiency -Per cardiology, Continue Esmolol drip 75 mcg per kg per minute for rate control and titrate up to goal rate less than 100 beats per minute. -Continue amiodarone 400 mg po q 8 for rate control -Continue home dose of Losartan -Cardiology consulted and we appreciate their expertise -ECHO shows an EF of 40-45%, and dilated left atria AFib with -On warfarin, INR has been therapeutic - Cardio recommends npo after midnight and attempt to cardiovert her maybe tomorrow and see if that helps if maybe she is eligible for rhythm control Acute Shortness of Breath, POA, Active. -Patient has been increasingly short of breath over the last few months with a reported "CHF visit in November of 2016". No formal diagnosis. -pro-BNP was 8005 in the ED with a previous BNP of 2716 on 12/18/16. -Per cardiology, Stop torsemide and start diuresis with Lasix 40 mg IV -Cardiology consulted as above -Strict I&Os, with daily weights. -low salt diet. Acute Kidney Injury, POA, Active. -SCr on 12/18/16 was 1.59. SCr on admission was 1.99, uncertain of the cause of this at this time -Today, creatinine has improved to 1.79 -BUN/Cr ratio 24.6 upon presentation -Avoid Nephrotoxic agents. -Hold digoxin due to renal insufficiency -Hold losartan due to renal insufficiency -Renal function panel Elevated Troponin of unknown significance, POA, Resolved -Patient had a troponin of 0.028 in the ED @0700 without any trends. Patient had no complaints of chest pain on admission. -Trended to negative reading H/o HTN. Stable -Hold Beta blockers -Hold losartan due to POLO. PPI: Famotidine Pain Control: Acetaminophen Constipation ppx: Senna, Miralax Nausea: Zofran Patient DNR/DNI Disposition: Patient is still being titrated to effective dosing of cardiac medications, anticipate 1-2 more days of IV rate and rhythm control. GI Prophylaxis: Proton Pump Inhibitor VTE Prophylaxis: Theraputic Anticoag with Warfarin Resuscitation Status: DNR/DNI:Do Not Resuscitate/Intubate Mamie Turcios DO Apr 28, 2017 06:14
--- NOTE | 2017-04-29 02:03 | PCM.DC.MED ---
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 Elsewhere, no acute abnormality Elevation of the right hemidiaphragm. Dictated by: Sathish Elkins M.D. on 12/10/2016 at 16:52 PROCEDURE: X-RAY CHEST, TWO VIEWS IMPRESSION: No overt heart failure or pneumonia is evident. Dictated by: Brenden Daly M.D. on 12/18/2016 at 12:47 PROCEDURE: X-RAY CHEST ONE VIEW, PORTABLE IMPRESSION: Reduced inspiratory volume, no acute disease, no pneumonia found. Chronic mild elevation of the right diaphragm Dictated by: Bj Lombardo M.D. on 04/25/2017 at 8:14 ECG 12 Lead ECG shows atrial fibrillation at 151 beats per minute with a left anterior fascicular block, but essentially unchanged from her ECG from December Cardiac Echo Impression ECHO on 04/26: Left ventricular systolic function is moderately reduced with the ejection fraction visually estimated to be 40-45% but appears slightly more dynamic compared to the previous study. There are no focal wall motion abnormalities. There is mild-moderate concentric left ventricular hypertrophy. Brief History Taken from H&P completed by Dr. Borja on 04/25/17: Patient is an 81 y/o female with a Afib-on Warfarin, hypertension, and had an episode of CHF in November 2016 who presented with increasing shortness of breath with palpitations. Admitted with Afib with RVR. Patient woke up from sleep at 0400 this morning with palpitations. She states she waited to see if the feeling would go away, but when it didn't she called the EMS. She has not tried any medications to relieve the symptoms, and nothing aggravates the symptoms. Shortness of breath has been going on for the last six months, but has been gradually getting worse the last week. Patient denies CP, ABD pain, N/ V/D, headache, urinary symptoms, constipation, fevers/chills, or loss of appetite. Patient doesn't feel that her legs have been getting more swollen, but she may have felt like her pants have been getting tighter this past week. Patient takes Torsemide 20mg PO daily, Metoprolol Succinate 150mg PO in the AM and 100mg PO in the evenings, Warfarin 1.5mg PO daily except , and Warfarin 3mg PO . She states that she has not missed any doses of medications. Patient was given 5mg IV Lopressor x3 in the ED without relief, Diltiazem 25mg IV without relief, and eventually placed on a Diltiazem drip at a rate of 5mg/ hr. Patient's HR in the ED was 132 with Afib. BP 102/78, with an O2 of 97% on Room Air. Hospital Course Patient is an 81 y/o female with a Afib-on Warfarin, hypertension, and had an episode of CHF in November 2016 who presented with increasing shortness of breath with palpitations. Admitted with Afib with RVR. Patient's cardiac medications were being titrated to effective dosing. Patient has recently been optimized through her inpatient stay and may be discharged to home at this time. However, she requires close follow-up with her PCP and cardiology within a week. She has been instructed to do daily weight checks as well as fluid restriction and salt restricted diet. Acute exacerbation of chronic Atrial Fibrillation, Present on admission - Patient in Afib with RVR. She has been compliant on medications, but has been feeling increasingly short of breath the last few months. Recent CHF in November 2016, and increasing SOB indicates this is likely secondary to fluid overload or CHF. -DC dilt drip -DC digoxin due to renal insufficiency -Per cardiology, Esmolol drip 75 mcg per kg per minute for rate control was continued while in hospital and titrated up to goal rate less than 100 beats per minute. -ECHO shows an EF of 40-45%, and dilated left atria AFib with -On warfarin, INR has been therapeutic --Cardiology consulted and we appreciate their expertise. Their recommendations include sending patient home on torsemide 40 mg daily, metoprolol succinate 200 mg twice a day, and warfarin for stroke prevention. They felt that it is reasonable to try on digoxin 0.125 mg every other day. Additionally amiodarone was discontinued -Patient has an appointment Dr. Ingram on Thursday to discuss atrioventricular junction ablation and the pacemaker implant. Acute Shortness of Breath, present on admission -Patient has been increasingly short of breath over the last few months with a reported "CHF visit in November of 2016". No formal diagnosis. -pro-BNP was 8005 in the ED with a previous BNP of 2716 on 12/18/16. -Per cardiology, Stop torsemide and start diuresis with Lasix 40 mg IV but patient was sent home on torsemide -Cardiology consulted as above -Strict I&Os, with daily weights. -low salt diet. Acute Kidney Injury, present on admission -SCr on 12/18/16 was 1.59. SCr on admission was 1.99, uncertain of the cause of this at this time -Last Cr on 04/28/17 was 1.98 -BUN/Cr ratio 24.6 upon presentation -Avoid Nephrotoxic agents. -Hold losartan due to renal insufficiency -Renal function panel Elevated Troponin of unknown significance, POA, Resolved -Patient had a troponin of 0.028 in the ED @0700 without any trends. Patient had no complaints of chest pain on admission. -Trended to negative reading H/o HTN. Stable -Hold Beta blockers -Hold losartan due to POLO. PPI: Famotidine Pain Control: Acetaminophen Constipation ppx: Senna, Miralax Nausea: Zofran Patient DNR/DNI Exam Vital Signs (Last) Date Time Temp Pulse Resp B/P Pulse Ox O2 Delivery O2 Flow Rate FiO2 04/28/17 10:02 110 04/28/17 07:42 36.6 14 114/67 98 Room Air 04/28/17 04:00 2.00 Exam Exam General: Patient is ill-appearing but lying comfortably on bed, AAOX3, not in acute distress, cooperative and pleasant. HEENT: head normocephalic and atraumatic, PERRLA, EOMI, no scleral icterus, noninjected conjunctiva Neck: neck supple, non-tender, no lymphadenopathy, trachea midline CV: Irregularly irregular, s1 and s2 heard, no murmur, radial pulses difficult to palpate, 2+ edema in the extremities bilaterally Lungs: Clear to auscultation bilaterally but diminished breath sounds, no wheezes, rales or rhonchi, no increased work of breathing, on 2 L NC Abdomen: normoactive bowel sounds on 4Q, soft, non-distended, non-tender to palpation, no organomegally, Skin: warm and dry, venous stasis changes on left leg Musculoskeletal: Legs are tender to palpation, full ROM bilaterally Neuro: Grossly neurologically intact, cranial nerves II through XII intact Psych: Normal mood and affect Test 04/25/17 07:45 04/25/17 16:15 04/25/17 20:09 04/27/17 02:45 Pro-B-Type Natriuretic Peptide 8005pg/mL (0-738) Procalcitonin 0.13ng/mL (0.00-0.08) Urine Color Yellow (YELLOW) Urine Appearance Hazy (CLEAR,HAZY) Urine pH 5.5 (5.0-8.0) Urine Specific R[place] 1.015 (1.003-1.035) Urine Protein Tracemg/dL (NEG,TRACE) Urine Glucose (UA) Negativemg/dL (NEGATIVE) Urine Ketones Negativemg/dL (NEGATIVE) Urine Occult Blood Negative (NEGATIVE) Urine Nitrite Negative (NEGATIVE) Urine Bilirubin Negative (NEGATIVE) Urine Urobilinogen Normalmg/dL (NORMAL) Urine Leukocyte Esterase Small (NEGATIVE) Urine RBC 0-2/hpf (0-2) Urine WBC 6-10/hpf (0-5) Urine Epithelial Cells Moderate/hpf (NONE-MOD) Urine Crystals None seen (NONE SEEN) Urine Bacteria Few/hpf (NONE-FEW) Urine Hyaline Casts 5/20/lpf (NONE) Urine Granular Casts None seen (NONE SEEN) Urine Waxy Casts None seen (NONE SEEN) Urine Red Blood Cell Casts None seen (NONE SEEN) Urine White Blood Cell Casts None seen (NONE SEEN) Urine Mucus Present (None Seen) Urine Trichomonas None seen (NONE SEEN) Urine Yeast None (NONE SEEN) Urinalysis Comment Urine Culture Reflexed Indicated Hold Urine Received (Received) Troponin T < 0.010ug/L (0.0-0.011) Phosphorus Level 2.8mg/dL (2.5-4.9) Magnesium Level 2.4mg/dL (1.6-2.6) Test 04/27/17 12:00 04/28/17 03:45 04/28/17 10:10 White Blood Count 10.9th/mm3 (3.8-10.1) Red Blood Count 4.61mil/mm3 (3.90-5.20) Hemoglobin 14.5g/dL (12.0-15.6) Hematocrit 43.7% (35.0-46.0) Mean Corpuscular Volume 94.8fL (81-100) Mean Corpuscular Hemoglobin 31.5pg (27.0-35.0) Mean Corpuscular Hemoglobin Concent 33.2% (32.0-37.0) Red Cell Distribution Width 15.3% (12.3-15.4) Platelet Count 216bil/L (150-400) Neutrophils (%) (Auto) 72.7% (40-74) Lymphocytes (%) (Auto) 10.7% (14-46) Monocytes (%) (Auto) 12.3% (4-12) Eosinophils (%) (Auto) 3.6% (0-5) Basophils (%) (Auto) 0.4% (0-3) Sodium Level 140mEq/L (134-144) Potassium Level 4.6mEq/L (3.5-5.2) Chloride Level 100mEq/L (97-108) Carbon Dioxide Level 25mmol/L (18-29) Blood Urea Nitrogen 44mg/dL (8-27) Creatinine 1.98mg/dL (0.57-1.00) Estimat Glomerular Filtration Rate 35mL/min (>59) Glucose Level 123mg/dL (60-99) Calcium Level 8.9mg/dL (8.5-10.1) Total Bilirubin 0.8mg/dL (0.0-1.2) Aspartate Amino Transf (AST/SGOT) 25U/L (0-50) Alanine Aminotransferase (ALT/SGPT) 29U/L (0-32) Alkaline Phosphatase 144U/L (25-165) Total Protein 5.5g/dL (6.4-8.4) Albumin 3.3g/dL (3.4-5.0) Prothrombin Time 24.2sec (8.1-12.5) Prothromb Time International Ratio 2.23ratio Microbiology Results Blood culture pending. Discharge Medications Discharge Medications Digoxin (Digoxin) 125 Mcg Tablet 125 MCG PO Q2DAY Prescribed by: CAMDEN MARTINEZ DO Metoprolol Succinate ER (Metoprolol Succinate ER) 200 Mg Tab.er.24h 200 MG PO BID Prescribed by: Marion TOLENTINO Torsemide (Torsemide) 20 Mg Tablet 20 MG PO take 2 tablets daily Prescribed by: Marion TOLENTINO Warfarin Sodium (Jantoven) 3 Mg Tablet 1.5 MG PO every day except Carin (Reported ) As needed Acetaminophen/Diphenhydramine (Tylenol Pm Ex-Strength Caplet) 500 Mg-25 Mg Tablet 2 EACH PO PRN For Pain (Reported) Followup Plan Disposition: Discharge to Home Follow-up plan Follow-up with Dr. Ingram cardiology on May 04. Also follow-up with PCP, Dr. Mason later this week to assess. Discharge Diet: Heart Healthy Discharge Activity: No restrictions Follow-up Provider: Anne Mason DO Follow-up with PCP in: 1 week Provider: Richard Ingram MD Follow-up in: 1 week CHF Clinic: 1 week Time spent 40 minutes Attending Statement I have seen and evaluated patient at bedside in addition to directly supervising care provided by resident physician Dr Turcios on 04/28/2017. I agree with above documentation. copies to: Richard Ingram MD; Anne Mason Alexa N DO Apr 29, 2017 01:59 Camden Martinez DO Apr 29, 2017 08:05
== END 2017-04-28 14:07 | disposition home or self-care (01) | DRG 308 ==
LOC: EDUNIT# 07:24 → EDBD 07:24 → SED 07:24 → PCC 14:17
PROVIDERS: ADMIT Internal Medicine; ATTEND Internal Medicine
DX: I48.2 Chronic atrial fibrillation (principal); I50.23 Acute on chronic systolic (congestive) heart failure; N17.9 Acute kidney failure, unspecified; I42.8 Other cardiomyopathies; Z79.01 Long term (current) use of anticoagulants; G47.30 Sleep apnea, unspecified; I10 Essential (primary) hypertension; Z87.891 Personal history of nicotine dependence; Z66 Do not resuscitate; E78.5 Hyperlipidemia, unspecified; R73.03 Prediabetes; G62.9 Polyneuropathy, unspecified

== ENCOUNTER 2017-05-28 00:02 | Inpatient (IN) | payer MEDICARE ==
[2017-05-28] VITALS (19 sets, daily range): BP systolic 99–134; BP diastolic 56–102; PULSE 74–88; RESP 16–24; O2SAT 91–97
[~2017-05-28] VITALS: Ht 161.9 cm; Wt 88.0 kg
[~2017-05-28 00:02] MED LIST: ACET-2605 PO; ALBU8.5H2 INHALATION; DIGO125T73 PO; METO200T4 PO; TORS20TA3 PO; WARF3TAB8 PO
--- NOTE | 2017-05-28 06:00 | NUR ---
ADMISSION NOTE FEMALE PT ADMITTED FOR ABLATION AND PACEMAKER PLACEMENT. DISCUSSED PLAN OF CARE WITH PT AND DAUGHTER. SEE ADMIT AND FLOW SHEET
[2017-05-28 06:51] LABS: BASOPHILS % (AUTO) 0.6 % (0-3); EOSINOPHILS % (AUTO) 5.3 % (0-5); MONOCYTES % (AUTO) 9.8 % (4-12); Mean Corpuscular Hemoglobin 30.8 pg (27.0-35.0); Mean Corpuscular Volume 90.7 fL (81-100); NEUTROPHILS % (AUTO) 65.8 % (40-74); Platelet Count 298 bil/L (150-400)
[2017-05-28] MEDS ORDERED: 0.9% Sodium Chloride 1,000 ML IV SCH (06:53)
[2017-05-28] MEDS ORDERED: Vancomycin Inj 1,000 MG in IV Premix 1 EACH IV ONE ×2 (06:55→23:55)
[2017-05-28 07:06] LABS: INR 2.57 ratio
[2017-05-28] MEDS ORDERED: Water for Injection 50 ML IV ONE (07:49)
[2017-05-28] MEDS ORDERED: Vancomycin 1,000 mg Inj ONE (07:49)
[2017-05-28] MEDS ORDERED: Heparin 10,000 Unit/1,000 mL NS Premix IV ONE ×2 (07:49→10:11)
[2017-05-28] MEDS ORDERED: 0.9% Sodium Chloride 250 ML ONE (07:50)
[2017-05-28] MEDS ORDERED: Bupivacaine-MPF 0.5% 30 mL Inj ONE (08:00)
[2017-05-28] MEDS ORDERED: fentaNYL-PF 50 mCg/mL 2 mL Inj ONE ×3 (08:20→10:48)
[2017-05-28] MEDS ORDERED: 0.9% Sodium Chloride 1,000 ML ONE (10:16)
[2017-05-28] MEDS ORDERED: Heparin 1,000 Unit/mL 10 mL Inj ONE (10:16)
--- NOTE | 2017-05-28 11:39 | OP ---
[address] [address] OPERATIVE REPORT PATIENT: FEDE ANDRADE : 1935 MR#: [id number] ADMIT: 05/28/2017 JOB ID: [id number] DATE OF SURGERY: 05/28/2017 PREOPERATIVE DIAGNOSIS(ES): 1. Atrial fibrillation, adygqugem-xv-cgyinvo rate. 2. Tachycardia mediated cardiomyopathy. 3. [place] Heart Association class III heart failure symptoms. POSTOPERATIVE DIAGNOSIS(ES): 1. Atrial fibrillation, wymofccpk-ld-dwwmjuy rate. 2. Tachycardia mediated cardiomyopathy. 3. [place] Heart [employer] class III heart failure symptoms. PROCEDURES PERFORMED: 1. Biventricular pacemaker implantation with placement of a multilead pacemaker generator, right ventricular pacemaker lead, and left ventricular coronary sinus lead. 2. Coronary sinus venogram. 3. Fluoroscopy. SURGEON: Richard Ingram MD [employer] WORKER: Aileen Kingston. IMPLANTED DEVICE: 1. [employer] pulse generator, model JG3021, serial #[id number]. 2. RV lead [employer] 208CC 58 cm, serial #[id number]. 3. LV lead [employer] 1456Q 86 cm, serial #[id number]. ANESTHESIA: Bolus dosing of Versed and fentanyl were used for appropriate level of sedation. INDICATION: The patient is a pleasant 81-year-old woman with rapid atrial fibrillation tmlfgvyno-id-apduvnn rates, consequent tachycardia mediated cardiomyopathy and advanced heart failure symptomology. After discussion of risks and benefits of biventricular pacemaker implantation and AV node ablation, she opted to proceed. PROCEDURAL DESCRIPTION: Following informed consent, the patient was taken to the EP laboratory in a fasting state where she was prepped and draped in usual sterile fashion. The left infraclavicular region was infiltrated with 40 cc of a 50/50 mixture of bupivacaine and lidocaine. Once adequate anesthesia had been achieved, a 3 cm transverse was below the clavicle. Dissection was carried down to the pectoralis fascia. A pocket was fashioned using a combination of electrocautery and blunt dissection. Once adequate hemostasis had been achieved, access twice with a micropuncture needle to deploy two 0.035, 3 mm J guidewires. Over the first of these, a 6-Wolof tear-away sheath was advanced an active fixation, ultimately the RV apex. The lead was affixed in position using associated active fixation screw, demonstrated appropriately sensed R waves, impedance, capture was checked to 10 V and there . Attention was now paid to placement of the left ventricular coronary sinus lead over the other previously deployed J guidewire, a 9-Wolof tear-away sheath was advanced. Once through a [employer] multipurpose CS delivery sheath was delivered over a Super CS decapolar catheter, which was then used to engage the coronary sinus. The sheath was placed into the sinus and a hand injection of contrast did not delineate a suitable branch for the lead. I therefore brought to the field an occlusion balloon and performed another venogram this time showing a posterolateral branch around the 4 o'clock position from the mitral annulus. This was chosen as our position of choice. The sheath was cleared and a quadripolar CS lead was brought to the field. Of note, the branch of choice over a Whisper wire. The lead was connected to external analyzer and demonstrated appropriately sensed R waves, impedance, capture was checked to 10 V. There was no diaphragmatic stimulation. The Whisper wire was replaced with the stylet. The short 9-Wolof sheath was slit loose and finally the long sheath was slit loose. Once the position and redundancy of both leads was confirmed with multiple fluoroscopic views, the leads are attached to the pre-pectoralis fascia using associated anchoring sleeves and two Ethibond sutures. The pocket was copiously with antibiotic solution. The leads were connected to a generator. affixed to the floor of the pocket using 1-0 Ti-Cron suture. The incision was then closed with running layers of absorbable suture. The wound was dressed with skin adhesive and a small dressing. At the end of the procedure, the needle, sponge, and instrument counts were all correct. COMPLICATIONS: None. ESTIMATED BLOOD LOSS: Negligible. DEVICE MEASUREMENT DATA: 1. RV lead 11.2 mV, 630 ohms, 0.5 V at 0.4 msec. 2. LV lead 940 ohms, 1.5 V at 1 msec (M2 to RV ring). FINAL PARAMETERS: VVI 60 beats per minute. IMPRESSION: Successful biventricular pacemaker implantation. PLAN: 1. Prepare for AV junction ablation. 2. Stat portable chest x-ray. 3. PA and lateral chest x-ray in morning. 4. . 5. IV vancomycin through tomorrow. 6. Doxycycline 100 mg p.o. daily x7 days starting tomorrow. 7. Reduce metoprolol gradually. 8. Plan for reduction of base rate from 80 beats per minute down to 60 beats per minute with 10 beats per minute per month reduction. ATTESTATION STATEMENT: IRichard MD, electrophysiology attending, was present for and supervised/performed all aspects of this procedure.
--- NOTE | 2017-05-28 11:40 | NUR ---
POST PROCEDURE NOTE RETURNED FROM W[employer] WORKER SEE FLOW SHEET
--- NOTE | 2017-05-28 11:44 | PROCED ---
[address] [address] PROCEDURE NOTE PATIENT: FEDE ANDRADE : 1935 MR#: [id number] ADMIT: 05/28/2017 JOB ID: [id number] DATE OF SERVICE: 05/28/2017 PREOPERATIVE DIAGNOSIS(ES): 1. Rapid atrial fibrillation with difficult to control rates. 2. Biventricular pacemaker implantation. POSTOPERATIVE DIAGNOSIS(ES): 1. Rapid atrial fibrillation with difficult to control rates. 2. Biventricular pacemaker implantation. PROCEDURE PERFORMED: 1. Limited electrophysiology study with atrioventricular junction ablation. 2. Fluoroscopy. SURGEON: Richard Ingram MD, electrophysiology attending. ASSISTANTS: Preet Monroy. ANESTHESIA: Bolus dosing of Versed and fentanyl were utilized for appropriate level of sedation. INDICATION: The patient is a pleasant 81-year-old woman with rapid atrial fibrillation, consequent cardiomyopathy and advanced heart failure symptomology. She underwent biventricular pacemaker implantation. After discussion of risks and benefits of AV node ablation, she opted to proceed. PROCEDURAL DESCRIPTION: Following informed signed consent, the patient was taken to the EP laboratory in a fasting, nonsedated state, where she was prepped and draped in the usual sterile fashion. The right inguinal region was infiltrated with 1% lidocaine. Then, using modified Seldinger technique, an 8-Czech sheath was inserted into the right femoral vein. Under fluoroscopic guidance, an irrigated J-curve ablation catheter was brought to the field and advanced to the AV junction. An ablation lesion was placed there leading to a complete heart block. A 20-minute waiting there was undertaken during which complete heart block was reconfirmed. Thresholds, impedances and sensing were performed through the pacemaker . No sensed R waves down to 30 beats per minute. Thresholds were stable. She was programmed to VVIR, 80 beats per minute to be dropped by 10 beats per minute per month until desired base rate is achieved. Catheter and sheaths removed. Manual pressure was held for hemostasis. The patient was transferred to the [facility] for monitoring and bedrest. COMPLICATIONS: None. ESTIMATED BLOOD LOSS: Negligible. IMPRESSION: Successful atrioventricular junction ablation. PLAN: 1. Bedrest x4 hours. 2. Monitoring in the hospital for two nights. 3. Reduce base rate by 10 beats per minute per month until desired base rate is achieved. ATTENDING STATEMENT: Richard Ingram MD, electrophysiology attending, was present for and supervised/performed all aspects of this procedure.
--- NOTE | 2017-05-28 15:03 | NUR ---
TRANSFER NOTE TO PCC. REPORT GIVEN
[2017-05-28] MEDS ORDERED: Albuterol 2.5 mg/3 mL Inhalation Solution NEB PRN (15:45)
--- NOTE | 2017-05-28 17:46 | NUR ---
Social Work: Initial Assessment D: Per EMR review, pt is an 81 year old female admitted for uncontrolled AFIB. Patient is [facility] with Medicare; pt states she has no LTC or VA benefits. PCP is through the [facility]. NOK is Lui Lockhart, dtr, . Advanced directives completed- HAIRSPRING INSPECTOR requested copy. Readmit score not entered. HAIRSPRING INSPECTOR met with the patient and daughter at bedside. Social work/dcp role explained, contact information and discharge planning checklist provided. See initial assessment. Pt lives alone in a single story home with 1 step to enter in [place]. Patient normally uses a 4ww but both she and daughter are concerned about maintaining precautions while using DME. Pt has never had HH or skilled rehab. The patient might benefit from a PT evaluation for recommendations for appropriate DME use while maintaining precautions for pacer. Pt and family are receptive to discharge planning and return visits from HAIRSPRING INSPECTOR. A: Pt who is I at baseline. P: Evolving; Anticipate discharge home pending patient can safely maintain pacer precautions with the use of DME. HAIRSPRING INSPECTOR to request PT evaluation from provider tomorrow. HAIRSPRING INSPECTOR to continue to follow to assess for further d/c needs. CURRY Herman Addendum: 05/28/17 at 1751 by LEE ANN MCKEON Amended: Links added.
--- NOTE | 2017-05-28 18:18 | NUR ---
nutrition pt consumed 100% of dinner tolerated well
[2017-05-28] MEDS: 0.9% Sodium Chloride 1,000 ML IV SCH ×2 (18:39→21:24)
[2017-05-28] MEDS: MeTOProlol XL 50 mg ER24 Tablet PO SCH (21:23)
[2017-05-29] VITALS (8 sets, daily range): BP systolic 115–143; BP diastolic 61–83; PULSE 76–95; RESP 18–22; O2SAT 93–98
--- NOTE | 2017-05-29 06:46 | NUR ---
Cardiac Patient recovering well from pacemaker insertion 05/28, able to sleep some last night. Denied pain through night, now having 1/10 incisional pain, plan to request tylenol from MD this AM. Up to BSC to void with x1 assist. CXR completed this AM. Plan to monitor another day, perhaps home 05/30 per patient and daughter.
[2017-05-29] MEDS: 0.9% Sodium Chloride 1,000 ML IV SCH ×2 (07:55→17:55)
[2017-05-29] MEDS: MeTOProlol XL 50 mg ER24 Tablet PO SCH ×2 (09:02→19:33)
--- NOTE | 2017-05-29 09:52 | PROG NOTE ---
[address] [address] PROGRESS NOTE PATIENT: FEDE ANDRADE : 1935 MR#: [id number] ADMIT: 05/28/2017 JOB ID: [id number] DATE: 05/29/2017 IDENTIFICATION: The patient is a pleasant 81-year-old woman with chronic atrial fibrillation, tachycardia mediated cardiomyopathy who underwent biventricular pacemaker implantation and AV junction ablation yesterday. She has remained hemodynamically stable overnight and is doing well. She denies any chest pain, pressure, discomfort, lightheadedness, or syncope. Her telemetry was unremarkable. Her pacemaker interrogation today shows excellent lead parameters and no conducted rhythm down to 40 beats per minute. Her chest radiograph shows no pneumothorax and stable lead positions. Her site is intact without any drainage or hematoma. IMPRESSION AND RECOMMENDATIONS: The patient is a pleasant 81-year-old woman with tachycardia mediated cardiomyopathy and chronic atrial fibrillation who is doing well post biventricular pacemaker implantation and AV junction ablation. She is hemodynamically stable. Has a stable chest radiograph and device check. I would like to monitor her overnight and discharge her home tomorrow if all is well. We will continue to reduce her metoprolol dosing and we will plan on bring her back in one month to reduce her backup pacing rate to 70 beats per minute.
--- NOTE | 2017-05-29 10:25 | NUR ---
Case Management: IMM given and explained to pt. Teodora BOYKINRN
--- NOTE | 2017-05-29 14:20 | NUR ---
Social Work-readiness for discharge: Data:EMR reviewed. Pt is on day 1 of hospitalization for uncontrolled AFIB per H&P. Pt is not medically stable anticipate 1- more days. PT saw pt today and cleared pt for home, pt ambulated 150ft using a fww. Contact precautions for pacemaker have been explained and gone over during PT session. No MD orders at this time. Pt's daughter to provide transport home at discharge. No anticipated discharge needs. SW will continue to follow if needs arise. Assessment:Pt who is independent at baseline. Plan:Pt to discharge home when medically stable via POV. Pt has been cleared by PT to return home. No anticipated discharge needs. SW will continue to follow if needs arise. CURRY Kent
--- NOTE | 2017-05-29 14:35 | DRSVH ---
PROCEDURE: X-RAY CHEST, TWO VIEWS ([id number]) INDICATIONS: For new lead placement TECHNIQUE: 2 views of the chest were acquired. COMPARISON: [facility], CR, XR CHEST 1VW (PORTABLE), 05/28/2017, 11:47. [facility], CR, XR CHEST 2VW, 12/18/2016, 13:12. FINDINGS: Surgical changes and devices: Dual chamber left cardiac pacer present in expected position. Lungs and pleura: No pleural effusions or pneumothorax. Lungs are clear. Chronic elevation of the right hemidiaphragm. Mediastinum: Mediastinal contours are normal. Heart size is normal. Bones and chest wall: No suspicious bony abnormalities. Soft tissues appear unremarkable. IMPRESSION: Stable chest post pacer placement. Dictated by: Andrea MCDONALD Interpreted: Yen Licona MD on 05/29/2017 at 9:02 Approved by: Yen Licona M.D. on 05/29/2017 at 14:33
[2017-05-30 03:44] VITALS: BP 126/71; PULSE 80; RESP 18; O2SAT 98
[2017-05-30] MEDS: 0.9% Sodium Chloride 1,000 ML IV SCH (03:55)
[2017-05-30 05:36] VITALS: PULSE 80
--- NOTE | 2017-05-30 05:52 | NUR ---
Cardiac/Activity Patient doing well, remained V-paced at 80 overnight. Denies pain. RA. Up to void in bathroom independently. LUE precautions r/t pacemaker. Plan for possible home today.
[2017-05-30 07:58] VITALS: BP 111/60; PULSE 80; RESP 19; O2SAT 95
[2017-05-30] MEDS: MeTOProlol XL 50 mg ER24 Tablet PO SCH (08:11)
[2017-05-30 08:40] VITALS: PULSE 80
--- NOTE | 2017-05-30 09:36 | PCM.DIMED ---
Discharge Instructions Date of Service May 30, 2017 Dates of Hospitalization May 28, 2017 at 15:41 Discharge Diagnosis Discharge Diagnosis Chronic Atrial Fibrillation with rapid rates. 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 Do not lift, push or pull more than 10 lbs with the left arm for one month.) Call your provider Call your provider for: Fever or Chills, Bleeding, Excessive diarrhea, Other ( Obvious signs of infection at the pacemaker site.) Patient Instructions Follow-up in: 1 week Mid-level Provider (F9): Claudio Noriega PA-C Follow-up with Mid-level in: 6 weeks Claudio Noriega PA-C May 30, 2017 09:36
[2017-05-30] MEDS ORDERED: METO-394 PO (09:52)
[2017-05-30] MEDS ORDERED: CEPH500C PO (09:52)
--- NOTE | 2017-05-30 14:43 | NUR ---
Discharge Patient was discharged home today in stable condition. Patient ambulated in room frequently and short distances in hallways and tolerated the activity well. Patient was using support of her cane for ambulation. Left upper chest incision was dry and intact but with some erythema around the incision side. Erythema was extending about 3cm around the incision site in all directions- consulted with Lisa and generator mechanic collections curator- patient was discharged home with BID dose of PO antibiotic. Patient and her daughter verbalized understanding of verbal and written discharge home instructions regarding medications, follow up appointments, activity, diet, incision care and signs and symptoms to call MD or 911. Patient verbalized basic understanding of pacemaker function and care. Left ant 20g IV was removed intact prior to discharge. Patient was transported in a wheel chair to her daughters car and was accompanied by staff.
--- NOTE | 2017-05-30 14:49 | DIS ---
[address] [address] DISCHARGE SUMMARY PATIENT: FEDE ANDRADE : 1935 MR#: [id number] ADMIT: 05/28/2017 JOB ID: [id number] DIS: 05/30/2017 REASON FOR ADMISSION: Atrioventricular (AV) node ablation and pacemaker implant. CHIEF COMPLAINT: Rapid palpitations and marked fatigue. BRIEF HISTORY: The patient is a very pleasant 81-year-old woman with chronic atrial fibrillation for some 20 years now. She developed a tachycardia mediated cardiomyopathy and her LV ejection fraction was 40%. Her ventricular rates have been difficult to control from atrial fibrillation, with rates in the 120s to even over 200 beats per minute at one point. Prior to this hospitalization she has been managed with metoprolol succinate 200 mg twice a day and digoxin and still having poor rate control. The decision was made between the patient and Dr. Ingram to do an ablation of the AV node to give heart block and rate control with a pacemaker. 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 There were no complications and she was taken back to the [facility] for recovery from sedation. Afterwards she was transferred up to the [facility] for a couple of days of observation and antibiotic treatment. She did well and had no problems with the pacemaker site or with any recovery of conduction. On the day of discharge, she has complete heart block and both ventricular leads are working satisfactorily. Her device site is a little red, but it is probably just from the work of the implant procedure and not infection. The incision is closed and dry. There is no hematoma. She felt well for discharge home and had no complaints of dizziness or chest pain. Telemetry monitoring has shown ventricular pacing at 80 beats per minute and no pauses and no ventricular arrhythmia. DISPOSITION: The patient was discharged home in good condition with a followup appointment at the [facility] office in one week. She was asked not to extend her left elbow above her shoulder and not to lift, push, or pull more than 10 pounds for one month. She will follow a heart healthy diet and take medications as prescribed. DISCHARGE MEDICATIONS: Cephalexin 500 mg b.i.d., metoprolol succinate 150 mg b.i.d., acetaminophen/diphenhydramine 500/25 mg 2 tablets p.r.n. pain, albuterol 2 puffs q.4 hours p.r.n. shortness of breath, digoxin 125 mcg every other day, torsemide 20 mg 2 tablets daily, warfarin alternating 1.5 mg and 3 mg as directed by her anticoagulation clinic. FINAL DIAGNOSES: 1. Chronic atrial fibrillation with rapid ventricular response. 2. Tachycardia mediated cardiomyopathy. 3. Atrioventricular (AV) node ablation and complete heart block. 4. Biventricular pacemaker implant on May 28, 2017.
--- NOTE | 2017-05-30 17:49 | NUR ---
Social Work: Discharge Data & Assessment: EMR reviewed. Patient is on day 2 of hospitalization for uncontrolled atrial fibrillation per H&P. Patient has been deemed medically stable for discharge. MD has placed discharge orders for today. Transportation will be provided by patient's daughter. Patient has no additional needs at this time. Plan: Patient will discharge home today. Transportation will be provided by his daughter. Patient has no additional needs at this time. CURRY Palmer
== END 2017-05-30 12:00 | disposition home or self-care (01) | DRG 244 ==
LOC: SOUO 00:02 → OBSVTOIN 15:41 → PCC 15:41
PROVIDERS: ADMIT Internal Medicine Cardiovascular Disease; ATTEND Internal Medicine Cardiovascular Disease
PROC: 0JH607Z Insertion of Cardiac Resynchronization Pacemaker Pulse Generator into Chest Subcutaneous Tissue and Fascia, Open Approach (ICD-10-PCS; principal; 2017-05-28)
PROC: 02HK3JZ Insertion of Pacemaker Lead into Right Ventricle, Percutaneous Approach (ICD-10-PCS; 2017-05-28)
PROC: 02583ZZ Destruction of Conduction Mechanism, Percutaneous Approach (ICD-10-PCS; 2017-05-28)
PROC: 02HL3JZ Insertion of Pacemaker Lead into Left Ventricle, Percutaneous Approach (ICD-10-PCS; 2017-05-28)
DX: I48.2 Chronic atrial fibrillation (principal); I42.8 Other cardiomyopathies; I44.2 Atrioventricular block, complete